=== PATIENT | male | born 1990 | race Caucasian/White ===

== ENCOUNTER 2021-07-11 14:00 | Emergency (ER) | payer MEDICAID, SELFPAY ==
[2021-07-11 14:06] VITALS: BP 108/76; PULSE 98; RESP 12; TEMP 37.6; O2SAT 96
--- NOTE | 2021-07-11 14:12 | W.ED.GENAD ---
Discharge Plan Disposition Patient Disposition: HOME Condition: Stable Discharge Details Clinical Impression: Viral syndrome Primary Care Provider: Anisa Mckeon ED Provider: Garett Sr Home Meds and New Rx's Prescriptions: Continued naproxen sodium [Aleve] 220 mg Tablet 440 mg PO BID PRNRF: 0 Discharge Instructions Instructions: Viral Syndrome (ED) Additional Instructions: Rest, plenty of fluids, [id number] Tylenol and/or Motrin as directed for discomfort. I would strongly recommend that you quit smoking and consider getting vaccinated. Your send out COVID test is pending, likely will result in the next 2-3 days and you will be notified. Until that time I recommend quarantining as you could be contagious. Please watch for new or worsening symptoms and return to the ER for any concerns otherwise contact your primary care provider on Tuesday to discuss your ER visit and need for outpatient reevaluation Medical Decision Making 31-year-old gentleman unvaccinated, current smoker, presents requesting a COVID test. Reports symptoms began over the past 24 hours. Took Aleve prior to arrival. Presents with a temperature of 37.6 but lungs are clear to auscultation and O2 sat is 96% on room air. We will obtain a send out COVID test. We discussed obtaining chest x-ray but patient declines. We discussed quarantine until his test has resulted negative, hopefully the next 2-3 days. We discussed treating symptoms [id number] medications. Standard discharge and return precautions were provided. This documentation was generated using [employer] dictation system, please disregard any oddities of phrase or misspellings. Medical Records Medical records reviewed: Yes I reviewed the patient's medical records. HPI General Mode of arrival: ambulatory. Date/Time Provider Initiated Documentation: 07/11/21 14:00. Limitations to Documentation: no limitations. Information obtained by: patient. HPI Narrative: This is a 31-year-old gentleman, current smoker, denies significant past medical history, not vaccinated for COVID, presenting to the ER reporting subjective fever, chills, dull global headache, mild dry cough, runny nose, requesting a COVID test. Patient did take Aleve prior to arrival. Reports potential COVID exposure earlier in the week, the other person's test is pending. Patient denies any vomiting, abdominal pain, diarrhea, pain or swelling in his legs, chest pain or shortness of breath Related Data Home Medications Medication Instructions Recorded Confirmed naproxen sodium [Aleve] 440 mg PO BID PRN 07/11/21 07/11/21 Allergies Allergy/AdvReac Type Severity Reaction Status Date / Time amoxicillin AdvReac Mild Skin Rash Unverified 07/11/21 14:11 General Stated Complaint: GenMedical RITO: 4 Review of Systems Constitutional Constitutional: Reports chills, Reports fever(s) and Denies headache(s) ENT Ears, Nose, Mouth, and Throat: Denies headache(s) and Denies sore throat Cardiovascular Cardiovascular: Denies chest pain and Denies dyspnea Respiratory Respiratory: Reports cough and Denies dyspnea Gastrointestinal Gastrointestinal: Denies abdominal pain Musculoskeletal Musculoskeletal: Reports myalgias Integumentary/Breasts Skin/Breast: Denies rash Neurologic Neurologic: Denies headache(s) PFSH All Active Problems (Updated 07/11/21 @ 14:27 by GENEVA Anderson) Viral syndrome (Acute) Social History Smoking/Tobacco Use Status: Current every day Tobacco Type: cigarettes Tobacco: How many years used: 16 Smoking risk assessment performed?: Yes Alcohol Intake: never Drug use: Daily Substance use type: marijuana Do you feel safe at home: Yes Do you feel safe in your relationship?: Yes Exam Const General: cooperative, healthy appearing, comfortable and no acute distress Orientation: alert, awake and oriented x3 HENMT Head: normal to inspection, normocephalic and atraumatic Ears: external ears normal, TM's normal bilaterally and EAC's normal General nose exam: nasal discharge clear bilaterally Mouth: moist mucous membranes Throat: posterior oropharynx normal Eyes General: appearance normal, both eyes and all related structures Conjunctivae: conjunctivae normal Neck Neck: normal visual inspection, full ROM, no lymphadenopathy, no meningeal signs, trachea midline, supple and nontender Resp Effort & Inspection: normal respiratory effort, able to speak in complete sentences and cough Quality of cough: dry Auscultation: clear to auscultation bilaterally Cardio Rate: regular rate Rhythm: regular rhythm Skin General skin exam: no rashes or lesions noted Neuro General: patient alert, patient awake, moves all extremities and no focal motor deficits Sensory Exam: no sensory deficits noted Psych Appearance: grossly normal Mental Status: mental status grossly normal Course Vital Signs Vital signs: Vital Signs Temperature 37.6 C H 07/11/21 14:06 Pulse 98 H 07/11/21 14:06 Respiratory Rate 12 07/11/21 14:06 Blood Pressure 108/76 07/11/21 14:06 Pulse Oximetry 96 07/11/21 14:06 Temperature 37.6 C H 07/11/21 14:06 Temperature Source Temporal Artery Scan 07/11/21 14:06 Pulse 98 H 07/11/21 14:06 Respiratory Rate 12 07/11/21 14:06 Blood Pressure 108/76 07/11/21 14:06 Blood Pressure Position Sitting 07/11/21 14:06 Pulse Oximetry 96 07/11/21 14:06 Oxygen Delivery Method Room Air 07/11/21 14:06 Oxygen Flow Rate 0 07/11/21 14:06 Pain Level 5 07/11/21 14:06
[2021-07-13 11:45] LABS: COVID-19 RT-PCR UVMMC Result Positive (Negative)
--- NOTE | 2021-07-13 15:47 | W.ED.FU ---
Follow Up Plan: I was notified by laboratory of positive COVID test. I called patient back on the phone and discussed his positive COVID test result with him. Patient reports that he feels fine and has no symptoms at this time. I discussed 5-day quarantine, and then 5 additional days of wearing mask around others to prevent transmission of COVID. Also discussed return to emergency department precautions and home care. Patient verbalized understanding of plan. All questions were answered.
== END 2021-07-11 14:38 | disposition home or self-care (01) ==
PROVIDERS: Emergency Provider Physician Assistant
DX: U07.1 COVID-19 (principal); F17.210 Nicotine dependence, cigarettes, uncomplicated; R51.9 Headache, unspecified
CPT/HCPCS: 99282; U0003

== ENCOUNTER 2021-11-18 11:14 | Emergency (ER) | payer MEDICAID, SELFPAY ==
[2021-11-18 11:21] VITALS: BP 122/71; PULSE 97; RESP 16; TEMP 36.9; O2SAT 98
--- NOTE | 2021-11-18 12:02 | W.ED.GENAD ---
Discharge Plan Disposition Patient Disposition: HOME Condition: Stable Discharge Details Clinical Impression: Influenza A Primary Care Provider: Anisa Mckeon ED Provider: Garett Sr Home Meds and New Rx's Prescriptions: No Action No Known Home Meds Discharge Instructions Instructions: Influenza (ED) Additional Instructions: Please drink plenty of fluid to stay hydrated and allow for plenty of rest. Please contact your primary care physician to arrange follow-up. Return to the ER immediately for any worsening or new concerning symptoms. Stand Alone Forms: Work Release Referrals: Anisa Mckeon MD [Primary Care Provider] - Medical Decision Making 31-year-old gentleman, smoker, unvaccinated, presents for URI-like symptoms for the past 3 days. Has not taken any [id number]-[id number] medication for his symptoms. Tested at home twice negative for COVID. Requesting work note to return to work. Clinically he appears well, nontoxic. Will perform fluvid to confirm negative COVID and flu, if unremarkable will provide return to work note. Patient is afebrile, O2 sats 98% on room air. No clear indication for chest x-ray. Flu A +. Discussed results with patient. Recommend [id number] treatment for symptoms, will provide a work note through the end of the week, plenty of hydration, etc. Standard discharge and return precautions were provided. Patient understands, is agreeable to this plan, and has no additional questions or concerns upon discharge. This documentation was generated using [employer] dictation system, please disregard any oddities of phrase or misspellings. Medical Records Medical records reviewed: Yes I reviewed the patient's medical records. Lab Data Lab results reviewed: Yes I reviewed the patient's lab results. Labs: Laboratory Tests Range/Units 11/18/21 11:29 COVID-19 Source Not Applicable SARS-CoV-2 (PCR) (Negative) Negative Influenza Type A (PCR) (Negative) Positive A Influenza Type B (PCR) (Negative) Negative RSV (PCR) (Negative) Negative HPI General Mode of arrival: ambulatory. Date/Time Provider Initiated Documentation: 11/18/21 11:20. Limitations to Documentation: no limitations. Information obtained by: patient. History of Present Illness 31 year old M presents to the emergency department with the chief complaint of uri, described as mild, with intensity rated at 3. Quality is described as aching, and is localized to the back (Body aches). Patient reports no radiation. Patient started experiencing this day(s) (3) and it has been constant. No relieving factors improve symptom(s), No exacerbating factors reported . Patient notes cough (dry) and fever/chills. Patient did receive the following treatments prior to arrival, none and other (Needs a work note to return to work) Related Data Home Medications Medication Instructions Recorded Confirmed Unknown [No Known Home Meds] 11/18/21 11/18/21 Allergies Allergy/AdvReac Type Severity Reaction Status Date / Time amoxicillin AdvReac Mild Skin Rash Unverified 11/18/21 11:24 General Stated Complaint: GenMedical RITO: 4 Review of Systems Constitutional Constitutional: Reports fever(s) ENT Ears, Nose, Mouth, and Throat: Denies sore throat Cardiovascular Cardiovascular: Denies chest pain and Denies dyspnea Respiratory Respiratory: Reports cough and Denies dyspnea Gastrointestinal Gastrointestinal: Denies abdominal pain, Denies diarrhea, Denies nausea and Denies vomiting Musculoskeletal Musculoskeletal: Reports myalgias PFSH All Active Problems (Updated 11/18/21 @ 12:31 by Artis Emery MD) Influenza A (Acute) Social History Smoking/Tobacco Use Status: Current every day Tobacco Type: cigarettes Tobacco: How many years used: 16 Smoking risk assessment performed?: Yes Alcohol Intake: never Drug use: Daily Substance use type: marijuana Do you feel safe at home: Yes Do you feel safe in your relationship?: Yes Exam Const General: cooperative, healthy appearing, comfortable and no acute distress Orientation: alert and awake [facility] Head: normal to inspection, normocephalic and atraumatic Face and sinus: normal facial exam Mouth: moist mucous membranes Throat: posterior oropharynx normal Eyes General: appearance normal, both eyes and all related structures Conjunctivae: conjunctivae normal Neck Neck: normal visual inspection, full ROM, no lymphadenopathy, no meningeal signs, trachea midline, supple and nontender Resp Effort & Inspection: normal respiratory effort and able to speak in complete sentences Auscultation: clear to auscultation bilaterally Cardio Rate: regular rate Rhythm: regular rhythm Skin General skin exam: no rashes or lesions noted Neuro General: patient alert, patient awake, moves all extremities and no focal motor deficits Cognition: normal cognition Speech: speech normal Gait: normal gait Sensory Exam: no sensory deficits noted Psych Appearance: grossly normal Mental Status: mental status grossly normal Course Vital Signs Vital signs: Vital Signs Temperature 36.9 C 11/18/21 11:21 Pulse 97 H 11/18/21 11:21 Respiratory Rate 16 11/18/21 11:21 Blood Pressure 122/71 11/18/21 11:21 Pulse Oximetry 98 11/18/21 11:21 Temperature 36.9 C 11/18/21 11:21 Pulse 97 H 11/18/21 11:21 Respiratory Rate 16 11/18/21 11:21 Respiratory Effort 11/18/21 11:25 Respiratory Depth Normal 11/18/21 11:25 Respiratory Pattern Normal 11/18/21 11:25 Blood Pressure 122/71 11/18/21 11:21 Pulse Oximetry 98 11/18/21 11:21
[2021-11-18 12:13] LABS: COVID-19 PCR Negative (Negative); Influenza B PCR Negative (Negative); RSV PCR Negative (Negative)
[2021-11-18 12:31] LABS: Influenza A PCR Positive (Negative)
[2021-11-18 12:46] VITALS: BP 122/68; PULSE 68; RESP 16; O2SAT 99
== END 2021-11-18 12:47 | disposition home or self-care (01) ==
PROVIDERS: Emergency Provider Physician Assistant
DX: J10.1 Influenza due to other identified influenza virus with other respiratory manifestations (principal); F17.210 Nicotine dependence, cigarettes, uncomplicated; Z20.822 Contact with and (suspected) exposure to COVID-19
CPT/HCPCS: 87637; 99283

== ENCOUNTER 2022-02-20 20:11 | Observation (INO) | payer MEDICAID, SELFPAY ==
[2022-02-20 20:23] VITALS: BP 118/80; PULSE 100; RESP 16; TEMP 36.1; O2SAT 99
--- NOTE | 2022-02-20 20:30 | DI.CT_ITS ---
Exam(s) CT CAROTID NECK CTA EXAM: CT CAROTID NECK CTA CLINICAL HISTORY: attempted hanging. TECHNIQUE: Imaging Protocol: Axial CT angiography was performed with multi-slice acquisition and mu lti-planar and/or 3D reconstructions. CONTRAST MATERIAL: Intravenous: Omnipaque 350 Contrast volume:structured data in ml COMPARISON: CT CT CERVICAL SPINE WO from 02/20/2022 FINDINGS: CTA NECK W: AORTIC ARCH ANATOMY: Conventional Anterior circulation: Both common carotid arteries are nicely patent. No narrowing. No dissection. No surrounding hemato mas. The carotid bifurcations and proximal internal carotid arteries are patent bilaterally. No si gnificant stenosis nor dissection. The internal carotid arteries are patent in the skull base-caroti d canals. Posterior circulation: Both vertebral arteries originated conventional fashion off of the subclavian arteries. No significa nt stenosis in the subclavian arteries proximal to the vertebral artery takeoff points. The left kateryna tebral artery is dominant. Both vertebral arteries ascend with normal luminal diameters in the jessica en transverse area with no evidence of intraluminal thrombus nor dissection. Both vertebral arteries contribute to the formation of the basilar artery at the skull base although the left vertebral adalgisa ry is dominant contributor. Most of the vertebral arteries included in the field of view and appears patent. Also included in the upper field of view are the intracavernous internal carotid arteries which are p atent, the supraclinoid internal carotid arteries which are patent and both middle cerebral arteries which appear patent. Both A1 segments are patent as are the anterior cerebral arteries. No evidence of aneurysm at the level of the anterior communicating artery. No aneurysm tip of the basilar arter y. IMPRESSION: 1. Patent vessels in the neck with no evidence of carotid stenosis nor dissection. No evidence of v ertebral artery thrombosis nor dissection. 2. Vessels are also patent in the skull base as described above. 3. No fractures. RADIATION DOSE DELIVERED: Total DLP DATA REPOSITORY: All CT scans at this facility are submitted to the National Radiology Data Registry (NRDR) Dose Index Registry (DIR) with the [employer] (ACR). RADIATION OPTIMIZATION: All CT scans at this facility use at least one of these dose optimization te chniques: automated exposure control; mA and/or kV adjustment per patient size (includes targeted exa ms where dose is matched to clinical indication); or iterative reconstruction.
--- NOTE | 2022-02-20 20:35 | DI.CT_ITS ---
Exam(s) CT CERVICAL SPINE WO EXAM: CT CERVICAL SPINE WO CLINICAL HISTORY: c-spine due to hanging attempt. TECHNIQUE: Imaging Protocol: Axial computed tomography images with coronal and sagittal reformatted images were created and reviewed COMPARISON: No exams were available for comparison FINDINGS: CERVICAL SPINE: There is no evidence of fracture nor listhesis. No significant prevertebral soft tissue swelling. There is a small hyperdensity anterior to the C4 vertebra which most probably represents some calcifi cation and less likely fracture fragment. There is reversal of the normal curvature of the cervical spine which is probably related to muscle spasm. There is no significant facet joint malalignment. No significant osseous lesions evident. IMPRESSION: No evidence of cervical spine fracture, malalignment, nor acute compromise of the cervical spinal can al. Reversal normal curvature which most probably related to muscle spasm. RADIATION DOSE DELIVERED: 298.9 mGy.cm Total DLP DATA REPOSITORY: All CT scans at this facility are submitted to the National Radiology Data Registry (NRDR) Dose Index Registry (DIR) with the [employer] (ACR). RADIATION OPTIMIZATION: All CT scans at this facility use at least one of these dose optimization te chniques: automated exposure control; mA and/or kV adjustment per patient size (includes targeted exa ms where dose is matched to clinical indication); or iterative reconstruction.
--- NOTE | 2022-02-20 20:40 | ED.GENADUL_ITS ---
Discharge Plan Disposition Patient Disposition: [facility] INPATIENT Condition: Stable Discharge Details Clinical Impression: Depression with suicidal ideation, Suicide attempt by hanging Admit Date/Time: 02/20/22 22:35 Admit Provider: Jonny Li Attending Provider: Jonny Li Primary Care Provider: Anisa Mckeon ED Provider: Gerry Hawthorne Discharge Data Discharge Date/Time-TO BE ENTERED AT DEPARTURE: 02/20/22 22:55 Medical Decision Making Patient presenting to the emergency department via [facility] for chief complaint of suicidal ideations with attempt of hanging. Patient was found by fianc? after he attempted to hang himself. Patient states long ongoing depression with hopelessness. Patient denies any ingestion alcohol or drugs. Patient does have previous history of old overdose about 14 years ago. Physical exam shows tenderness and erythema to the anterior neck but trachea is midline, voice is normal, respirations and remainder of exam is unremarkable. Patient does elicit suicidal ideations but denies any homicidal ideations. Patient had previously been on psychiatric medications after former attempt of suicide but has been off medication for years now. We will plan on checking labs and performing imaging of neck due to attempted hanging. Patient is otherwise stable with no emergent interventions needed. Reviewed patient's labs and CBC is nondiagnostic and otherwise unremarkable, CMP does show slightly increased anion gap at 12.2 but again unremarkable. Urinalysis is also unremarkable, patient did have slight amount of salicylate of 3.3, positive drug screen for cocaine otherwise negative, ethyl alcohol of 39.9. Reviewed CT imaging which shows no acute worrisome findings. At this time patient is agreeable to voluntary admission but seems significantly agitated about having to stay. I did inform patient that he would not be safe to stay at this time and discussed involuntary admission versus voluntary and after this discussion he was agreeable. Patient ordered Nicotrol. Imaging Data Radiologic Study: Imaging: CT Scan Radiologist's impression: CT C-Spine FINDINGS: Bones/joints: A small focus of hyperdensity anterior to the C4 vertebral body may represent a small calcification and less likely fracture. There is reversal of the cervical lordosis, which could be secondary to patient positioning or neck spasm. Lungs: Lung apices are normal. Soft tissues: Unremarkable. IMPRESSION: No acute fracture. CTA- Neck FINDINGS: Right common carotid artery: No stenosis. No dissection or occlusion. Right internal carotid artery: No stenosis of the extracranial segment. No dissection or occlusion. Right external carotid artery: No occlusion or stenosis of the origin. Left common carotid artery: No stenosis. No dissection or occlusion. Left internal carotid artery: No stenosis of the extracranial segment. No dissection or occlusion. Left external carotid artery: No occlusion or stenosis of the origin. Right vertebral artery: No stenosis. No dissection or occlusion. Left vertebral artery: No stenosis. No dissection or occlusion. Paranasal sinuses: There is mucosal thickening in the bilateral maxillary sinuses. Soft tissues: Normal. No significant soft tissue swelling. Bones/joints: No acute fracture. IMPRESSION: No evidence of arterial injury. Lab Data Lab results reviewed: Yes I reviewed the patient's lab results. HPI General Mode of arrival: ambulatory . Date/Time Provider Initiated Documentation: 02/20/22 20:18 . Limitations to Documentation: no limitations . Information obtained by: patient, police and RN notes reviewed . History of Present Illness 31 year old M presents to the emergency department with the chief complaint of Suicidal ideations, attempted hanging, described as mild, with intensity rated at 1. Quality is described as aching, and is localized to the neck. Patient reports no radiation. Patient started experiencing this hour(s) (1) and it has been constant. No relieving factors improve symptom(s), No exacerbating factors reported . Patient notes no other symptoms.. Patient did receive the following treatments prior to arrival, none Related Data Home Medications Medication Instructions Recorded Confirmed Unknown [No Known Home Meds] 11/18/21 02/20/22 Allergies Allergy/AdvReac Type Severity Reaction Status Date / Time amoxicillin AdvReac Mild Skin Rash Unverified 02/20/22 20:25 General Stated Complaint: PsychEval RITO: 2 Review of Systems Constitutional Constitutional: Denies body ache(s), Denies chills, Denies fever(s), Denies headache(s), Denies weight gain and Denies weight loss Eyes Eyes: Denies change in vision ENT Ears, Nose, Mouth, and Throat: Denies dysphagia, Denies headache(s), Reports neck pain, Denies odynophagia, Denies tinnitus, Reports sore throat and Denies throat swelling Cardiovascular Cardiovascular: Denies chest pain, Denies syncope and Denies dyspnea Respiratory Respiratory: Denies cough and Denies dyspnea Gastrointestinal Gastrointestinal: Denies abdominal pain, Denies dysphagia, Denies diarrhea, Denies nausea, Denies odynophagia and Denies vomiting Genitourinary Genitourinary: Denies difficulty urinating and Denies dysuria Musculoskeletal Musculoskeletal: Reports neck pain Integumentary/Breasts Skin/Breast: Denies wounds Neurologic Neurologic: Denies syncope and Denies headache(s) Psychiatric Psychiatric: Reports as per HPI, Reports depression, Reports hopelessness, Reports anhedonia, Denies homicidal ideation and Reports suicidal ideation Endocrine Endocrine: Denies cold intolerance and Denies heat intolerance Hematologic/Lymphatic Hematologic/Lymphatic: Denies easy bleeding and Denies easy bruising Allergic/Immunologic Allergic/Immunologic: Denies throat swelling PFSH All Active Problems (Updated 02/21/22 @ 13:35 by Jonny Li) Substance abuse (Chronic) Depression (Chronic) Suicidal ideation (Acute) Social History Smoking/Tobacco Use Status: Current every day Tobacco Type: cigarettes Tobacco: How many years used: 16 Smoking risk assessment performed?: Yes Alcohol Intake: never Drug use: Daily Substance use type: marijuana Do you feel safe at home: Yes Do you feel safe in your relationship?: Yes Exam Const General: cooperative Orientation: alert, awake and oriented x3 Limitations: mental status not altered HENMT Head: normal to inspection, normocephalic and atraumatic Ears: hearing grossly normal bilaterally and TM's normal bilaterally General nose exam: external nose normal Face and sinus: normal facial exam Mouth: lip normal, tongue normal, oropharynx normal and moist mucous membranes Throat: posterior oropharynx normal Eyes General: appearance normal, both eyes and all related structures Pupils: PERRL EOM: EOM intact bilaterally Neck Neck: supple, no anterior neck swelling, no lymphadenopathy noted, tender, no tracheal deviation and other (Circumferential erythema noted to anterior neck) Resp Effort & Inspection: normal respiratory effort, able to speak in complete sentences and no respiratory distress Auscultation: clear to auscultation bilaterally Cardio Rate: regular rate and not tachycardic Rhythm: regular rhythm Heart Sounds: S1 normal, S2 normal, no click, no gallops, no murmurs and no rubs Neuro General: patient alert, patient awake, patient oriented x3, gait normal, moves all extremities and no focal motor deficits Cognition: normal cognition Speech: speech normal Psych Speech and Movement: speech and movement normal and speech clear Affect: sad Attitude: cooperative Thought Process: normal Thought Content: normal and suicidality Course Vital Signs Vital signs: Vital Signs Temperature 36.1 C L 02/20/22 20:23 Pulse 100 H 02/20/22 20:23 Respiratory Rate 16 02/20/22 20:23 Blood Pressure 118/80 02/20/22 20:23 Pulse Oximetry 99 02/20/22 20:23 Temperature 36.1 C L 02/20/22 20:23 Temperature Source Skin 02/20/22 20:23 Pulse 100 H 02/20/22 20:23 Respiratory Rate 16 02/20/22 20:23 Blood Pressure 118/80 02/20/22 20:23 Pulse Oximetry 99 02/20/22 20:23 Pain Level 1 02/20/22 20:23
[2022-02-20 20:50] LABS: Abs Immature Grans 0.03 10^3/uL (0.0-0.06); Absolute Basophil Count 0.13 10^3/uL (0.0-0.2); Absolute Eosinophil Count 0.11 10^3/uL (0.0-0.7); Absolute Lymphocyte Count 2.29 10^3/uL (1.2-3.4); Absolute Monocyte Count 0.72 10^3/uL (0.1-0.8); Absolute Neutrophil Count 7.23 10^3/uL (1.2-6.7); Basophils % 1.2; HCT 42.8 % (40.0-50.0); HGB 14.5 g/dL (13.5-17.5); Immature Grans % 0.3; Lymphocytes % 21.8; MCHC 33.9 % (32.0-36.0); MCV 92 fL (80-95); MPV 9.3 fL (8.0-11.0); Monocytes % 6.9; Neutrophils % 68.8; Platelet Count 298 10^3/uL (130-400); RBC 4.68 10^6/uL (4.36-5.78); RDW 12.8 % (11.8-14.1); RDW-SD 42.4 fL; WBC 10.51 10^3/uL (4.4-10.8)
[2022-02-20] MEDS: Omnipaque 350 MG/ML 100 ML BTL IJ (21:06)
[2022-02-20 21:07] LABS: ALT 27 U/L (16-63); AST 13 U/L (15-37); Albumin 4.7 g/dL (3.4-5.0); Alkaline Phosphatase 55 U/L (46-116); Anion Gap 12.2 mmol/L (3-11); BUN 7 mg/dL (7-18); Bilirubin, Total 0.6 mg/dL (0.2-1.0); CO2 24.8 mmol/L (21.0-32.0); Calcium 9.2 mg/dL (8.5-10.1); Chloride 101 mmol/L (98-107); ETHANOL BLOOD 39.9 mg/dL (<10); Glucose 96 mg/dL (74-106); Potassium 3.7 mmol/L (3.5-5.1); Sodium 138 mmol/L (136-145); Total Protein 8.1 g/dL (6.4-8.2)
[2022-02-20] MEDS: Normal Saline Flush 10 ML SYR IVP (21:07)
[2022-02-20 21:11] LABS: Salicylate 3.3 mg/dL (<2.8)
[2022-02-20 21:13] LABS: Acetaminophen < 2 ug/mL (10-30)
[2022-02-20 21:30] LABS: *AMPHETAMINES SCREEN URINE Negative (Negative); *BARBITURATES SCREEN URINE Negative (Negative); *BENZODIAZEPINES SCREEN URINE Negative (Negative); Cannabinoids THC Negative (Negative); Cocaine Screen,Urine Positive (Negative); METHADONE URINE SCREEN Negative (Negative); OPIATES URINE SCREEN Negative (Negative)
[2022-02-20 21:31] LABS: Tricyclic Antidepressants Negative (Negative)
[2022-02-20 21:32] LABS: Bilirubin Negative (Negative); Blood Negative (Negative); Clarity Clear (Clear); Glucose Negative (Negative); Ketones Negative (Negative); Leukocyte Esterase Negative (Negative); Nitrite Negative (Negative); Urobilinogen 0.2 EU/dL (Up TO 0.2)
--- NOTE | 2022-02-20 21:49 | DI.VRAD_ITS ---
PROCEDURE INFORMATION: Exam: CTA Neck With Contrast Exam date and time: 02/20/2022 8:56 PM Age: 31 years old Clinical indication: Injury or trauma; Other: Attempted hanging; Asphyxiation TECHNIQUE: Imaging protocol: Computed tomographic angiography of the neck with contrast. 3D rendering (Not supervised by radiologist): MIP and/or 3D reconstructed images were created by the technologist. COMPARISON: No relevant prior studies available. FINDINGS: Right common carotid artery: No stenosis. No dissection or occlusion. Right internal carotid artery: No stenosis of the extracranial segment. No dissection or occlusion. Right external carotid artery: No occlusion or stenosis of the origin. Left common carotid artery: No stenosis. No dissection or occlusion. Left internal carotid artery: No stenosis of the extracranial segment. No dissection or occlusion. Left external carotid artery: No occlusion or stenosis of the origin. Right vertebral artery: No stenosis. No dissection or occlusion. Left vertebral artery: No stenosis. No dissection or occlusion. Paranasal sinuses: There is mucosal thickening in the bilateral maxillary sinuses. Soft tissues: Normal. No significant soft tissue swelling. Bones/joints: No acute fracture. IMPRESSION: No evidence of arterial injury. REFERENCES: NASCET CRITERIA. The degree of stenosis in the cervical segment of the internal carotid artery is based on NASCET criteria. Normal is no stenosis. Mild is less than 50% stenosis. Moderate is 50-69% stenosis. Severe is 70% to 99% stenosis. Total occlusion is no detectable patent lumen. Dictated and Authenticated by: Jessica Bartlett MD. Ordering:EMIL Garrett MD
--- NOTE | 2022-02-20 22:02 | DI.VRAD_ITS ---
PROCEDURE INFORMATION: Exam: CT Cervical Spine Without Contrast Exam date and time: 02/20/2022 8:56 PM Age: 31 years old Clinical indication: Injury or trauma; Attempted hanging; Asphyxiation TECHNIQUE: Imaging protocol: Computed tomography of the cervical spine without contrast. COMPARISON: No relevant prior studies available. FINDINGS: Bones/joints: A small focus of hyperdensity anterior to the C4 vertebral body may represent a small calcification and less likely fracture. There is reversal of the cervical lordosis, which could be secondary to patient positioning or neck spasm. Lungs: Lung apices are normal. Soft tissues: Unremarkable. IMPRESSION: No acute fracture. Dictated and Authenticated by: Jessica Bartlett MD. Ordering:EMIL Garrett MD
--- NOTE | 2022-02-20 22:35 | HPE_ITS ---
Date of service: 02/20/22 Time of Service: 22:35 Assessment and Plan Assessment and plan (1) Suicidal ideation: Start date: 02/20/22 Status: Acute Assessment and plan: This is a 31-year-old gentleman who failed suicide attempt by hanging. He is medically cleared with no injury and is voluntarily awaiting placement to inpatient psychiatric care. He is on no psychiatric treatment at this time. He appears stable. (2) Depression: Status: Chronic Assessment and plan: On no treatment at this time but is being reevaluated with inpatient evaluation and treatment plan. (3) Substance abuse: Status: Chronic Assessment and plan: Patient has history of using cocaine with positive UA though he denies recent use. Monitor for self treatment long-term as an outpatient. Counseling may be helpful. History of Present Illness History of Present Illness Chief Complaint: Suicide attempt with loose noose and failed being found by [place]? Narrative: This is a 31-year-old male patient who attempted suicide but was unsuccessful with Finding. He is hopeless but not living with his zoe and has a daughter who does not live with him. He does occasionally use cocaine and this was in his urine drug screen though he denies any recent use of alcohol or drugs. He has had previous suicide attempts and is not obviously present presently. He does have suicidal ideation and he is medically cleared to be brought in voluntarily pending placement for inpatient. He is stable except for having nicotine withdrawal and use of metoprolol to temporize. He is short during conversation not wanting to discuss details or further history. He states his neck is slightly tender but had minimal trauma. Imaging was negative. Labs were within normal except for urine drug screen. ED evaluation by provider as follows: Patient presenting to the emergency department via [facility] for chief complaint of suicidal ideations with attempt of hanging.? Patient was found by fianc? after he attempted to hang himself.? Patient states long ongoing depression with hopelessness.? Patient denies any ingestion alcohol or drugs.? Patient does have previous history of old overdose about 14 years ago.? Physical exam shows tenderness and erythema to the anterior neck but trachea is midline, voice is normal, respirations and remainder of exam is unremarkable.? Patient does elicit suicidal ideations but denies any homicidal ideations.? Patient had previously been on psychiatric medications after former attempt of suicide but has been off medication for years now.? We will plan on checking labs and performing imaging of neck due to attempted hanging.? Patient is otherwise stable with no emergent interventions needed. Reviewed patient's labs and CBC is nondiagnostic and otherwise unremarkable, CMP does show slightly increased anion gap at 12.2 but again unremarkable.? Urinalysis is also unremarkable, patient did have slight amount of salicylate of 3.3, positive drug screen for cocaine otherwise negative, ethyl alcohol of 39.9 .? Reviewed CT imaging which shows no acute worrisome findings.? At this time patient is agreeable to voluntary admission but seems significantly agitated about having to stay.? I did inform patient that he would not be safe to stay at this time and discussed involuntary admission versus voluntary and after this discussion he was agreeable.? Patient ordered Nicotrol. Review of Systems Narrative: 13 point review of systems otherwise unrevealing or stable. His weight has been stable but he has had increasing hopelessness recently. PFSH All Active Problems (Updated 02/21/22 @ 13:35 by Jonny Li) Substance abuse (Chronic) Depression (Chronic) Suicidal ideation (Acute) Social History Smoking/Tobacco Use Status: Current every day Tobacco Type: cigarettes Tobacco: How many years used: 16 Smoking risk assessment performed?: Yes Alcohol Intake: never Drug use: Daily Substance use type: marijuana Do you feel safe at home: Yes Do you feel safe in your relationship?: Yes Meds Allergies and Home Medications Allergies Allergy/AdvReac Type Severity Reaction Status Date / Time amoxicillin AdvReac Mild Skin Rash Unverified 02/20/22 20:25 Home Medications Medication Instructions Recorded Confirmed Type Unknown [No Known Home Meds] 11/18/21 02/20/22 History Exam Narrative Exam Narrative: General: Patient appears appropriate for age, flattened affect with poor eye contact, turns away from the interviewer with short conversations. He is alert and oriented x3. HEENT: Normocephalic, eyes with pupils equal and reactive to light symmetri james, extraocular movement intact and sclera anicteric. Oropharynx with moist mucosa. Neck: Erythema over the base of the neck without edema or induration, no lacerations, fair range of motion and supple. No JVD. Back: Normal posture without CVA tenderness. Lungs: Fair aeration with bronchovesicular breath sounds diffusely, no expiratory wheezes no focalizing rales or rhonchi. Heart: Regular rate and rhythm with no murmurs or gallops appreciated. Abdomen: Scaphoid contour, soft and nontender to palpation. No palpable hepatosplenomegaly. Bowel sounds positive all quadrants. Genitalia/rectal: Exam deferred. Extremities: Without clubbing, cyanosis or pitting edema. Peripheral pulses intact. Skin: Tattoos with normal color, warm and dry. Neuro: Cranial nerves II through XII gross intact, no focalizing motor deficits or tremors. Psych: Flattened affect with depressed mood patient withdrawn. No abnormal thought processes other than suicidal ideation. Remote and recent memory appear to be grossly intact. Patient is easily agitated. Results Imaging Imaging Studies: Exam: CTA Neck With Contrast Exam date and time: 02/20/2022 8:56 PM Age: 31 years old Clinical indication: Injury or trauma; Other: Attempted hanging; Asphyxiation TECHNIQUE: Imaging protocol: Computed tomographic angiography of the neck with contrast. 3D rendering (Not supervised by radiologist): MIP and/or 3D reconstructed images were created by the technologist. COMPARISON: No relevant prior studies available. FINDINGS: Right common carotid artery: No stenosis. No dissection or occlusion. Right internal carotid artery: No stenosis of the extracranial segment. No dissection or occlusion. Right external carotid artery: No occlusion or stenosis of the origin.? Left common carotid artery: No stenosis. No dissection or occlusion. Left internal carotid artery: No stenosis of the extracranial segment. No dissection or occlusion. Left external carotid artery: No occlusion or stenosis of the origin.? Right vertebral artery: No stenosis. No dissection or occlusion. Left vertebral artery: No stenosis. No dissection or occlusion. Paranasal sinuses: There is mucosal thickening in the bilateral maxillary sinuses. Soft tissues: Normal. No significant soft tissue swelling. Bones/joints: No acute fracture. IMPRESSION: No evidence of arterial injury. Exam: CT Cervical Spine Without Contrast Exam date and time: 02/20/2022 8:56 PM Age: 31 years old Clinical indication: Injury or trauma; Attempted hanging; Asphyxiation TECHNIQUE: Imaging protocol: Computed tomography of the cervical spine without contrast. COMPARISON: No relevant prior studies available. FINDINGS: Bones/joints: A small focus of hyperdensity anterior to the C4 vertebral body may represent a small calcification and less likely fracture. There is reversal of the cervical lordosis, which could be secondary to patient positioning or neck spasm. Lungs: Lung apices are normal. Soft tissues: Unremarkable. IMPRESSION: No acute fracture. Labs Result diagrams: 02/20/22 20:45 02/20/22 20:45 Labs: Laboratory Results - last 24 hr 02/20/22 02/20/22 02/20/22 20:45 20:45 20:45 WBC 10.51 RBC 4.68 Hgb 14.5 Hct 42.8 MCV 92 MCH 31.0 MCHC 33.9 RDW 12.8 Plt Count 298 MPV 9.3 Immature Gran % 0.3 Neutrophils % 68.8 Lymphocytes % 21.8 Monocytes % 6.9 Eosinophils % 1.0 Basophils % 1.2 Nucleated RBC % 0.0 Absolute Neutrophils 7.23 H Absolute Lymphocytes 2.29 Absolute Monocytes 0.72 Absolute Eosinophils 0.11 Absolute Basophils 0.13 Sodium 138 Potassium 3.7 Chloride 101 Carbon Dioxide 24.8 Anion Gap 12.2 H BUN 7 Creatinine 1.0 Estimated GFR/1.73 m2 >= 60.00 Glucose 96 Calcium 9.2 Total Bilirubin 0.6 AST 13 L ALT 27 Alkaline Phosphatase 55 Total Protein 8.1 Albumin 4.7 Urine Color Urine Clarity Urine pH Ur Specific [place] Urine Protein Urine Ketones Urine Blood Urine Nitrite Urine Bilirubin Urine Urobilinogen Ur Leukocyte Esterase Urine Glucose Salicylates 3.3 Urine Opiates Screen Urine Methadone Screen Acetaminophen < 2 Ur Barbiturates Screen Ur Tricyclics Screen Ur Amphetamines Screen U Benzodiazepines Scrn Urine Cocaine Screen Ur THC Screen Ethyl Alcohol 39.9 H 02/20/22 02/20/22 21:00 21:00 WBC RBC Hgb Hct MCV MCH MCHC RDW Plt Count MPV Immature Gran % Neutrophils % Lymphocytes % Monocytes % Eosinophils % Basophils % Nucleated RBC % Absolute Neutrophils Absolute Lymphocytes Absolute Monocytes Absolute Eosinophils Absolute Basophils Sodium Potassium Chloride Carbon Dioxide Anion Gap BUN Creatinine Estimated GFR/1.73 m2 Glucose Calcium Total Bilirubin AST ALT Alkaline Phosphatase Total Protein Albumin Urine Color Yellow Urine Clarity Clear Urine pH 6.0 Ur Specific [place] 1.010 Urine Protein Negative Urine Ketones Negative Urine Blood Negative Urine Nitrite Negative Urine Bilirubin Negative Urine Urobilinogen 0.2 Ur Leukocyte Esterase Negative Urine Glucose Negative Salicylates Urine Opiates Screen Negative Urine Methadone Screen Negative Acetaminophen Ur Barbiturates Screen Negative Ur Tricyclics Screen Negative Ur Amphetamines Screen Negative U Benzodiazepines Scrn Negative Urine Cocaine Screen Positive A Ur THC Screen Negative Ethyl Alcohol Last Vital Signs Temp 36.1 C L 02/20/22 20:23 Pulse 100 H 02/20/22 20:23 Resp 16 02/20/22 20:23 BP 118/80 02/20/22 20:23 Pulse Ox 99 02/20/22 20:23
--- NOTE | 2022-02-20 22:37 | PDOC.MHCN_ITS ---
Date of service: 02/20/22 Time of Service: 21:00 PHQ-9 Over the last 2 weeks, how often have you been bothered by any of the following problems? 1. Little interest or pleasure in doing things: several days 2. Feeling down, depressed, or hopeless: nearly every day 3. Trouble falling or staying asleep, or sleeping too much: several days 4. Feeling tired or having little energy: not at all 5. Poor appetite or overeating: not at all 6. Feeling bad about yourself - or that you are a failure or have let yourself and your family down: nearly every day 7. Trouble concentrating on things, such as reading the newspaper or watching television: not at all 8. Moving or speaking so slowly that other people could have noticed? - Or the opposite - being so fidgety or restless that you have been moving around a lot more than usual: not at all 9. Thoughts that you would be better off or of hurting yourself in some way: several days Total score: 9 Source: Developed by Drs. Jermain Carrera, Karlene Boykin, Liam Terry and colleagues, with an educational jerica from [employer]. Suicide Severity Rate CSSRS Have you wished you were or wished you could go to sleep and not wake up?: Yes Have you actually had any thoughts of killing yourself?: Yes CSSRS2 Have you been thinking about how you might do this?: Yes Have you had these thoughts and had some intention of acting on them?: Yes Have you started to work out or worked out the details of how to kill yourself? Do you intend to carry out this plan?: Yes CSSRS3 Have you ever done anything, started to do anything or prepared to do anything to end your life?: Yes CSSRS4 Was this within the past three months?: Yes Screening Score Total Score: 8 Screening: Positive Mental Health Emergency Note Release [facility] release signed:: Yes Reason for Visit Client was brought in by [facility] after he attempted to hang himself. In the last 2 weeks has the pt presented for ES prior to today?: No Client Information Client is: Adult Outpatient Well Housed: Yes Non Suicidal Self Injury Current: No History: No Safety Risk/Harm to Self or Others Current Ideation to Harm Self or Others: Yes to self. (Client attempted to hang himself with an extension cord. Client had the cord wrapped around his neck and was hanging from a beam.) Intent: yes, has intent. Plan: yes,has a plan. History of suicide attempt: yes,history of suicide attempt reported. Details of previous suicide attempt: Before today, client reports he attempted to overdose on cocaine when he was [age] years old. Risk: Does risk to harm exist?: yes. Access to means: No. Risk: High Risk (Client would be at high risk if he were to leave the ED, in addition client has access to means at home but not in the ED.) Duty to warn indicated: No Asssessment/Mental Status Appearance: Unremarkable Attitude: Cooperative and Guarded Behavior: Poor impulse control, Agitated and Gait disturbances Speech: Normal Affect: Cogruent with mood Mood: Elevated, Stressed, Depressed, Anxious and Irritable Thought process: Racing, Goal directed and Circumstational Hallucinations: No Delusions: No Attention: Unremarkable Perception: Not impaired Orientation: Fully orientated Memory: Intact Insight: Poor Judgement: Poor Neurovegetative Symptoms Sleep: Decrease (Client has not slept well in two nights.) Appetitie: Decrease (Client has not eaten since yesterday.) Interests: No change Energy: No change Libido: Not applicable Substance Use: Do you use nicotine?: Yes Have you used substances in the last 7 days?: yes, Client smokes marijuana, reporting less than an eighth of an ounce a week. Additional Issues: Assaultive/Threatening Behavior: No Medical Concerns: Yes Client engaged in active self harm w/weapon: Yes Threatening to run away: No Child reported abuse/neglect: No Voluntarily presenting for services: Yes Domestic violence is a concern: No Extreme Psychosis or extreme behavior is present: No Impression This clinician first started talking to CAROLYNN while he was in the [employer]'s vehicle. CAROLYNN reports he feels like a failure and he can never do anything right. Client reports he is struggling to maintain a job and help provide for himself and his family. Client feels embarrassed because of tonight's events. Client presents as cooperative but guarded and goal directed. Client reports he attempted to hang himself because he had enough. Client did report his intention was to by suicide. Client reports having anxiety and depression. CAROLYNN states he has a therapist from [facility]. Client states he wants to go home, this account underwriter and FANCY NEEDLEWORK[employer] Marine had a conversation with this cleint on why this is not the most appropriate option. CAROLYNN agreed and is seeking voluntary treatment. Plan/Disposition Recommended Disposition: Hospitalization (Referrals will be sent first thing in the morning.) No and Psych Screening. Plan: Client will remain at [facility] until voluntary treatment is found. If this client attempts to leave please call [facility] so we can discuss with him. If client were to leave AMA we need to be notified LINDSEY. Person reported agreement to plan: Yes Reports/communication Outcome discussed with: ED/Personnel
[2022-02-20] MEDS: hydrOXYzine HCL 25 MG TAB PO (22:56)
[2022-02-20 23:31] LABS: Source Nasal/Nares
[2022-02-21 00:02] LABS: COVID-19 PCR Negative (Negative)
[2022-02-21 00:28] VITALS: BP 105/62; PULSE 85; RESP 18; TEMP 36.3; O2SAT 96
[2022-02-21 08:21] VITALS: BP 96/60; PULSE 72; RESP 14; TEMP 36.4; O2SAT 97
[2022-02-21] MEDS: LORazepam 1 MG TAB PO ×2 (13:36→16:49)
--- NOTE | 2022-02-21 13:51 | PDOC.CMSAFE ---
- If Service Date Differs Date of service: 02/21/22 Time of Service: 13:51 Care Management Safety Plan Status: Voluntary - Reason for Wait Reason for Wait: Inpatient Admission VOLUNTARY FOR INPATIENT PSYCHIATRIC STABILIZATION. Patient is appropriate in all interactions since arriving at [facility]; Pt has demonstrated appropriate coping and communication skills, has articulated his or her needs and concerns and is fully engaged during staff interactions. Safety plan has been established with patient, and care team, to adhere to patient goals, identify restrictions based on behavioral status, address nutrition, and determine allowed personal belongings, tools for hygiene and personal care. Determine level of activity including ambulation, level of supervision, visitors, and determine privileges based on behaviors and level of engagement by pt. SAFETY PLAN: 1. Will remain on suicide precautions. In Paper Clothes 2. Will remain in room under direct supervision of one-on-one staff at all times provided by [employer]; NADIA, [employer] ski production supervisor. 3. May have paper cups, plates, finger foods as well as a cardboard spoon with which to eat meals. 4. Follow [facility] Management of the Admitted Behavioral Health Patient policy. 5. Comfort bath system only, shower permitted with escort at RN discretion. 6. No personal belongings-soft items permitted at RN discretion. 7. Visitors-none at this time. 8. Activities: soft cart items approved per RN discretion. 9. Bathroom privileges with escort in the ED, available in room without limitation on M/S. 10. Phone: incoming/outgoing calls via cordless phone at RN discretion. 11. Due to VOLUNTARY status, if patient wishes to leave [facility], staff will contact [facility] Crisis Screener ([phone]) and [employer] Water Purifier ([phone]) as soon as possible. In the event of elopement, notify [facility] Police ([phone]). Patient is currently voluntarily at [facility] and seeking inpatient admission when a bed becomes available. [facility] Frontline Director [employer] will continue seeking placement. Please contact the [employer] Water Purifier ([phone]) and [facility] Director [employer] ([phone]) for any needed changes in the Safety Plan. Safety plan has been provided to interdepartmental care team.
--- NOTE | 2022-02-21 13:52 | CMPROGNOTE_ITS ---
- If Service Date Differs Date of service: 02/21/22 Time of Service: 13:52 Care Management Progress Note S/O: LIBIA received a call from Sejal, Serg's mother, who provided information about Serg, stating that she feels he has hit bottom. She stated that he is in a good relationship with his girlfriend, Em. He has one child from a previous relationship that he pays child support for, and he is currently out of work, and on probation. She stated that he has a court appearance on March 04, 2022 regarding child support, and she is worried that he will not be able to call in if he is in treatment. Per [facility], he has had four DUI's, which is why he is on probation, and has a counselor through [facility], Melany Mata. Serg was lying in bed when CM met with him. He reported that he is not doing well today, as he does not want to be in the hospital. He stated that he had a bad day yesterday, which led to his attempt, but that he is not currently suicidal or homicidal. CM explained the process for him to better understand that he is currently voluntary, awaiting inpatient psychiatric treatment. He stated that he does not want to go to treatment at this time. CM explained that he is not being held involuntarily, therefore he is able to leave if he chooses, but it would be AMA. If he chooses to leave, CM will notify [facility]. If [facility] feels that he is a danger to himself or others, they may seek a warrant for EE. Serg expressed frustration regarding this process. LIBIA stated that per [place], he may use the cordless phone for incoming/outgoing calls. He was appreciative and asked to call his family, and stated that he would decide if he wants to leave or not after the call. Later, LIBIA was called to discuss the process with Serg and his mother, Sejal. LIBIA reviewed the process and talked with his mother, Sejal, who expressed concern if he is to leave the hospital. Serg appeared agitated, and requested support for his anxiety. LIBIA informed MARGARITA Downey, who visited with him and ordered medication for his anxiety, as well as additional nicotine replacement. Serg agreed to remain voluntary for inpatient psychiatric treatment. Per [facility], [facility] and [facility] are both reviewing his referral. [facility] has stated that they may have a bed for him tomorrow. [facility] requested additional information, and may be able to offer him a bed today. CM will continue to follow. A: Serg is a 31 year old male admitted to [facility] on 02/20/22 for a suicide attempt. P: Serg is voluntarily seeking inpatient psychiatric treatment. [facility] has sent referrals to all facilities. [facility] [place] and [facility] are both considering him for admission. Once a bed offer is made, CM vs RN mailroom supervisor (after hours) will coordinate transport via [employer] vs EMS, depending on availability. He will follow up with his PCP and discharge plan of care. CM will continue to support discharge planning considerations.
[2022-02-21] MEDS: Nicotine 4 MG GUM CH (14:08)
--- NOTE | 2022-02-21 15:25 | DSE_ITS ---
Date of service: 02/21/22 Time of Service: 15:25 DS: Diagnosis Discharge Diagnosis (1) Suicidal ideation: Status: Acute (2) Depression: Status: Chronic (3) Substance abuse: Status: Chronic Discharge Plan Disposition Patient Disposition: [facility] Condition: Stable Discharge Details Reason For Visit: Suicide Attempt Admit Date/Time: 02/20/22 22:35 Admit Provider: Jonny Li Attending Provider: Jonny Li Primary Care Provider: Anisa Mckeon [facility] Hospital Course: This is a 31-year-old male patient that presented to the [facility] emergency department with [facility] on 02/20/22 in the evening with the chief complaint of Suicidal ideation and attempted hanging. The patient was found by his fianc? after he tried to hang himself. The patient endorsed long ongoing depression with hopelessness. The patient denied any ingestion of alcohol or drugs. The patient did have a previous history of overdose about 14 years ago. The physical exam showed tenderness and erythema to the anterior neck; the trachea was midline, his voice was normal, respirations regular and bilaterally clear, and the remainder of the exam was unremarkable. The patient does report suicidal ideation but denies any homicidal ideation. The patient had previously been on psychiatric medications after the former attempt of suicide but has been off medication for years now. The patient is otherwise stable, with no emergent interventions needed. Reviewed patient's labs and CBC is nondiagnostic and otherwise unremarkable; CMP does show a slightly increased anion gap at 12.2 but again unremarkable. Urinalysis is also unremarkable; the patient did have a slight amount of salicylate of 3.3, a positive drug screen for cocaine otherwise negative for other drugs, and ethyl alcohol of 39.9. Reviewed CT imaging which shows no acute worrisome findings. He is interested in in-patient treatment and agreeable to [place]. Discussed with Dr Gloria Home Meds and New Rx's Prescriptions: No Action No Known Home Meds Discharge Instructions Stand Alone Forms: Nursing Discharge Form Activity:: Activity as Tolerated Equipment/Supplies:: No Equipment Needed Diet:: As Tolerated Discharge Orders Discharge Orders: Discharge Order (Routine); Ordered 02/21/22 Ordered By: Nasreen Bledsoe DS: Summary Time Spent with Patient providing and/or coordinating discharge services: Less than 30 minutes Status at Discharge Functional status at discharge: independent ambulation Overall status at discharge: patient is progressing back to baseline Mental Status: mental status grossly normal Speech and Movement: speech and movement normal Mood: congruent mood Affect: normal affect Exam Psych Mental Status: mental status grossly normal Speech and Movement: speech and movement normal Mood: congruent mood Affect: normal affect DS: Data Vitals/I&O Vitals and I&O: Vital Signs Temperature 36.4 C L 02/21/22 08:21 Temperature Source Tympanic 02/21/22 08:21 Pulse 72 02/21/22 08:21 Pulse Rhythm Regular 02/21/22 08:30 Respiratory Rate 14 02/21/22 08:21 Respiratory Effort Non-Labored 02/21/22 08:30 Respiratory Depth Normal 02/21/22 00:08 Respiratory Pattern Normal 02/21/22 08:30 Blood Pressure 96/60 L 02/21/22 08:21 Pulse Oximetry 97 02/21/22 08:21 Oxygen Delivery Method Room Air 02/21/22 08:21 Oxygen Flow Rate 0 02/21/22 08:21 Pain Level 0 02/21/22 08:21 Intake & Output 02/20/22 02/21/22 02/21/22 23:59 11:59 23:59 Intake Total 240 / 480 240 / 480 Balance 240 / 480 240 / 480 Weight 81.647 kg Intake: Oral 240 / 480 240 / 480 Other: Comment Patient void in toilet at this time. Patient voided in toilet at this time. Data Completed and Pending Labs on day of discharge: Labs from last 24 hours 02/20/22 02/20/22 02/20/22 22:25 21:00 21:00 WBC RBC Hgb Hct MCV MCH MCHC RDW Plt Count MPV Immature Gran % Neutrophils % Lymphocytes % Monocytes % Eosinophils % Basophils % Nucleated RBC % Absolute Neutrophils Absolute Lymphocytes Absolute Monocytes Absolute Eosinophils Absolute Basophils Sodium Potassium Chloride Carbon Dioxide Anion Gap BUN Creatinine Estimated GFR/1.73 m2 Glucose Calcium Total Bilirubin AST ALT Alkaline Phosphatase Total Protein Albumin Urine Color Yellow Urine Clarity Clear Urine pH 6.0 Ur Specific [place] 1.010 Urine Protein Negative Urine Ketones Negative Urine Blood Negative Urine Nitrite Negative Urine Bilirubin Negative Urine Urobilinogen 0.2 Ur Leukocyte Esterase Negative Urine Glucose Negative Salicylates Urine Opiates Screen Negative Urine Methadone Screen Negative Acetaminophen Ur Barbiturates Screen Negative Ur Tricyclics Screen Negative Ur Amphetamines Screen Negative U Benzodiazepines Scrn Negative Urine Cocaine Screen Positive A Ur THC Screen Negative Ethyl Alcohol COVID-19 Source Nasal/Nares SARS-CoV-2 (PCR) Negative 02/20/22 02/20/22 02/20/22 20:45 20:45 20:45 WBC 10.51 RBC 4.68 Hgb 14.5 Hct 42.8 MCV 92 MCH 31.0 MCHC 33.9 RDW 12.8 Plt Count 298 MPV 9.3 Immature Gran % 0.3 Neutrophils % 68.8 Lymphocytes % 21.8 Monocytes % 6.9 Eosinophils % 1.0 Basophils % 1.2 Nucleated RBC % 0.0 Absolute Neutrophils 7.23 H Absolute Lymphocytes 2.29 Absolute Monocytes 0.72 Absolute Eosinophils 0.11 Absolute Basophils 0.13 Sodium 138 Potassium 3.7 Chloride 101 Carbon Dioxide 24.8 Anion Gap 12.2 H BUN 7 Creatinine 1.0 Estimated GFR/1.73 m2 >= 60.00 Glucose 96 Calcium 9.2 Total Bilirubin 0.6 AST 13 L ALT 27 Alkaline Phosphatase 55 Total Protein 8.1 Albumin 4.7 Urine Color Urine Clarity Urine pH Ur Specific [place] Urine Protein Urine Ketones Urine Blood Urine Nitrite Urine Bilirubin Urine Urobilinogen Ur Leukocyte Esterase Urine Glucose Salicylates 3.3 Urine Opiates Screen Urine Methadone Screen Acetaminophen < 2 Ur Barbiturates Screen Ur Tricyclics Screen Ur Amphetamines Screen U Benzodiazepines Scrn Urine Cocaine Screen Ur THC Screen Ethyl Alcohol 39.9 H COVID-19 Source SARS-CoV-2 (PCR) PFSH All Active Problems (Updated 02/21/22 @ 13:35 by Jonny Li) Substance abuse (Chronic) Depression (Chronic) Suicidal ideation (Acute) Social History Smoking/Tobacco Use Status: Current every day Tobacco Type: cigarettes Tobacco: How many years used: 16 Smoking risk assessment performed?: Yes Alcohol Intake: never Drug use: Daily Substance use type: marijuana Do you feel safe at home: Yes Do you feel safe in your relationship?: Yes
[2022-02-21 15:30] VITALS: BP 112/76; PULSE 78; RESP 16; TEMP 36.3; O2SAT 98
--- NOTE | 2022-02-21 16:49 | PDOC.MHPN2 ---
Date of service: 02/21/22 Time of Service: 11:30 Mental Health Emergency Note Release [facility] release signed:: Yes Reason for Visit Client is seeking treatment. In the last 2 weeks has the pt presented for ES prior to today?: No Client Information Client is: Adult Outpatient and Substance use Well Housed: Yes Non Suicidal Self Injury Current: No History: No Safety Risk/Harm to Self or Others Current Ideation to Harm Self or Others: No Risk: Does risk to harm exist?: yes. Access to means: No. Risk: Moderate Risk Duty to warn indicated: No Asssessment/Mental Status Appearance: Unremarkable Attitude: Guarded Behavior: Agitated Speech: Normal Affect: Cogruent with mood Mood: Stressed, Anxious and Irritable Thought process: Unremarkable Hallucinations: No Delusions: No Attention: Unremarkable Perception: Not impaired Orientation: Fully orientated Memory: Intact Insight: Poor Judgement: Poor Neurovegetative Symptoms Sleep: No change Appetitie: No change Interests: No change Energy: No change Libido: No change Substance Use: Do you use nicotine?: Yes Have you used substances in the last 7 days?: yes, Client smokes marijuana. Additional Issues: Assaultive/Threatening Behavior: No Medical Concerns: No Client engaged in active self harm w/weapon: Yes Threatening to run away: No Child reported abuse/neglect: No Voluntarily presenting for services: Yes Domestic violence is a concern: No Extreme Psychosis or extreme behavior is present: No Impression Client was very short with this content writer responding with one word answers. Client states he slept fine, appetite is fine, and he feels better today. Client reports he attempted to hang himself out of a poor impulse. Client has not had suicidal thoughts today. Client is staying at [facility] for voluntary admission. Plan/Disposition Recommended Disposition: Hospitalization ([facility], , [facility], [facility]) facilities contacted. Plan: Client will remain at [facility] until placement is found. Person reported agreement to plan: Yes Facilities contacted if Applicable [facility] (Client is being reviewed) Accepted, Pending review. Information Sent to [facility]: Referral and Medication Compliance [facility] Not accepted, No bed available [facility] Not accepted, No bed available, [facility] Accepted, Accepted/transfer pending. Information Sent to [place]: Referral and Medication Compliance Reports/communication Outcome discussed with: ED/Personnel
== END 2022-02-21 19:47 | disposition short-term general hospital (02) ==
LOC: ER 23:09 → MS 23:57
PROVIDERS: Emergency Medicine; Admitting Provider Family Medicine; Emergency Provider Nurse Practitioner Family; Visit Provider Family Medicine
DX: T14.91XA Suicide attempt, initial encounter (principal); T71.162A Asphyxiation due to hanging, intentional self-harm, initial encounter; F32.A Depression, unspecified; F19.10 Other psychoactive substance abuse, uncomplicated; F17.210 Nicotine dependence, cigarettes, uncomplicated; F12.90 Cannabis use, unspecified, uncomplicated; X83.8XXA Intentional self-harm by other specified means, initial encounter; F14.10 Cocaine abuse, uncomplicated; Z91.51 Personal history of suicidal behavior
CPT/HCPCS: 70498; 80053; 80307; 87635; 99285; 72125; 80320; 80329; 81003; 85025; 99217; 99219; 99284; G0378; J3490

== ENCOUNTER 2022-04-28 12:52 | Emergency (ER) | payer MEDICAID, SELFPAY ==
[2022-04-28 12:54] VITALS: BP 132/77; PULSE 85; RESP 16; TEMP 37; O2SAT 99
--- OUTSIDE RECORDS SUMMARY | 2022-04-28 12:56 | XMS_ITS | Encounter Summary ---
:1990 Demographics Home Phone Preferred Language Unknown Marital Status Unknown Hinduism Affiliation Unknown Race Unknown Ethnic Group Unknown Author Organization [facility] Address [address] [place] [address] Care Team Providers Name Role Phone Unavailable Primary Care Provider Unavailable Encounter Details Date Type Department Care Team Description 07/12/2021 Lab Requisition [facility] Outr Resulting Lab, Pathology & Laboratory Provider [facility] [address] [place] [address] Social History Tobacco Use Types Packs/Day Years Used Date Never Assessed Sex Assigned at Date Recorded Not on file documented as of this encounter Plan of Treatment Not on filedocumented as of this encounter Procedures Procedure Name Priority Date/Time Associated Diagnosis Comme nts COVID-19 TEST [facility] Today 07/11/2021 14:35 LAB PCR EST COVID-19 TESTING Routine 07/11/2021 14:35 Results for this EST procedure are i n the results section. documented in this encounter Results COVID-19 TEST [facility] LAB PCR (07/11/2021 14:35 EST) Specimen Swab Performing Organization Address City/State/ZIP Code Phon e Number [facility] [address] [place] [address] SERVICES (ABNORMAL) COVID-19 TESTING (07/11/2021 14:35 EST) COVID-19 rt-PCR Positive (AA) Negative [facility] Result Comment: LABORATORY This test has not been FDA c leared or approved. This test has been authorized by FDA under an EUA for use by authorized laboratories. This test has been authorized only for detection of nucleic acid fro SERVICES m 2019-nCoV, not for any oth er viruses or pathogens. This test is only authorized for the duration of the declaration that circumstances exist justifying the authorization of emergency use of in vitro d iagnostic tests for detectio n and/or diagnosis of 2019-nCoV under section 564(b)(1) of Act, 21 U.S.C ?? 360bbb-3(b) (1), unless the authorization is terminated or revoked sooner. Testing was performed using the evgeny SARS-CoV-2 assay ([employer] on the Evgeny 6800 System Performing Lab [facility]geny [address] [facility] Lab [facility] SERVICES Specimen Swab Performing Organization Address City/State/ZIP Code Phon e Number [facility] [address] [place] [address] SERVICES documented in this encounter Visit Diagnoses Not on filedocumented in this encounter Additional Health Concerns Infection Onset Date Last Indicated Resolved Time COVID-19 07/11/2021 07/11/2021 07/31/2021 22:15 EST documented as of this encounter
--- OUTSIDE RECORDS SUMMARY | 2022-04-28 12:56 | XMS_ITS | Clinical Summary ---
:1990 Demographics Home Phone Preferred Language Unknown Marital Status Unknown Gnosticism Affiliation Unknown Race Unknown Ethnic Group Unknown Author Organization [facility] Address [address] [place] [id number] Care Team Providers Name Role Phone Unavailable Primary Care Provider Unavailable Social History Tobacco Use Types Packs/Day Years Used Date Never Assessed Sex Assigned at Date Recorded Not on file Plan of Treatment Not on file
--- NOTE | 2022-04-28 13:06 | ED.GENADUL_ITS ---
Discharge Plan Disposition Patient Disposition: HOME Condition: Good Discharge Details Clinical Impression: URI (upper respiratory infection) Primary Care Provider: Unknown,Unknown ED Provider: Froy Baez Home Meds and New Rx's Prescriptions: New benzonatate 100 mg capsule 100 mg PO TID Qty: 30 0RF loratadine 10 mg tablet 10 mg PO DAILY Qty: 30 0RF budesonide-formoterol [Symbicort] 160-4.5 mcg/actuation HFA aerosol inhaler 2 puff inhalation BID Qty: 10.2 0RF No Action fluoxetine 40 mg capsule 1 cap PO DAILY Label Comments: 1 capsule by mouth once a day Discharge Instructions Instructions: Upper Respiratory Infection (ED) Additional Instructions: At this time your symptoms appear consistent with viral upper respiratory infection. Thankfully there is no evidence of pneumonia or ear infection or tonsillitis. Please do your best to stop smoking. Please take the loratadine as directed to help drain the fluid behind your ears and decrease the runny nose that you having. Please take the inhaler that has been prescribed 2 puffs every 12 hours to help with the cough and irritation, and take the cough medication to diminish her cough as needed. These prescriptions have been sent to your pharmacy on file. You will be contacted when your COVID flu and RSV returns if they are positive. If you notice any worsening of your symptoms, or any new symptoms such as vomiting, diarrhea, fever, chills, shortness of breath, chest pain, numbness, weakness, or fainting , please return immediately to the emergency department for reevaluation. Please follow up with your primary care provider as soon as possible for reassessment and reevaluation. As always, it was a pleasure participating in your medical care today. Medical Decision Making 31-year-old male who smokes regularly, presents today for evaluation of bilateral ear pain sore throat. Patient states symptoms have been present for the last week. He denies any documented fever. He denies any hemoptysis. No yellow or green or purulent sputum. Ear pain is slightly improved with NSAIDs but he states that he has not been taking much ibuprofen or Tylenol. No other complaints at this time. No other modifying factors. Exam demonstrates a well-appearing posterior oropharynx. No tonsillar exudates or enlargement. He has mild serous otitis media bilaterally, but no purulent otitis media. Lungs are clear, oxygenation excellent. We will test for flu COVID and RSV and contact the patient with the results. No indication for antibacterial treatment for his ears, and no clinical evidence of pneumonia. We will recommend loratadine, Tessalon Perles, and Symbicort inhaler. Recommend smoking cessation. Discussed red flags for which to return. I have extensively reviewed the treatment plan and discharge instructions with the patient. I have addressed all patient concerns at this time. The patient was made aware of what symptoms to monitor for that would warrant a return to the emergency department. Discussed the plan with the patient, they demonstrate verbal understanding and agreement with our assessment and plan at this time. The documentation in this chart was dictated using [employer] dictation software. Please excuse any dictation errors. Flu, COVID, RSV are negative. Patient was contacted. He is informed of the results.. HPI General Date/Time Provider Initiated Documentation: 04/28/22 12:53 . HPI Narrative: 31-year-old male who smokes regularly, presents today for evaluation of bilateral ear pain sore throat. Patient states symptoms have been present for the last week. He denies any documented fever. He denies any hemoptysis. No yellow or green or purulent sputum. Ear pain is slightly improved with NSAIDs but he states that he has not been taking much ibuprofen or Tylenol. No other complaints at this time. No other modifying factors. Related Data Home Medications Medication Instructions Recorded Confirmed benzonatate 100 mg capsule 100 mg PO TID #30 caps 04/28/22 budesonide-formoterol HFA 160 2 puff inhalation BID #10.2 grams 04/28/22 mcg-4.5 mcg/actuation aerosol inhaler (Symbicort) fluoxetine 40 mg capsule 1 cap PO DAILY 04/28/22 04/28/22 loratadine 10 mg tablet 10 mg PO DAILY #30 tabs 04/28/22 Previous Rx's Medication Instructions Recorded benzonatate 100 mg capsule 100 mg PO TID #30 caps 04/28/22 budesonide-formoterol HFA 160 2 puff inhalation BID #10.2 grams 04/28/22 mcg-4.5 mcg/actuation aerosol inhaler (Symbicort) loratadine 10 mg tablet 10 mg PO DAILY #30 tabs 04/28/22 Allergies Allergy/AdvReac Type Severity Reaction Status Date / Time amoxicillin AdvReac Mild Skin Rash Unverified 04/28/22 13:01 General Stated Complaint: EarProblem RITO: 4 Review of Systems All systems reviewed & are unremarkable except as noted in HPI and below PFSH All Active Problems URI (upper respiratory infection) (Acute) Substance abuse (Chronic) Depression (Chronic) Suicidal ideation (Acute) Social History Smoking/Tobacco Use Status: Current every day Tobacco Type: cigarettes Tobacco: How many years used: 16 Smoking risk assessment performed?: Yes Alcohol Intake: never Drug use: Daily Substance use type: marijuana Do you feel safe at home: Yes Do you feel safe in your relationship?: Yes Exam Narrative Exam Narrative: 1.Const: Well-nourished, Well-developed, appearing stated age 2.Eyes: PERRL, no conjunctival injection, and symmetrical lids. 3.ENT: Atraumatic external nose and ears. Moist MM. Neck: Symmetric, trachea midline, No thyromegaly. Mild serous effusion, no purulent effusion bilaterally. Mild crepitus noted in the left TMJ with movement. No significant erythema of the posterior oropharynx. No tonsillar enlargement. 4.CVS: +S1/S2, No murmurs or gallops. Peripheral pulses 2+ and equal in all extremities. Brisk capillary refill in all extremities. 5.RESP: Unlabored respiratory effort. Clear to auscultation bilaterally. No wheezes rales or rhonchi 6.GI: Soft, Nontender/Nondistended, No hepatosplenomegaly. No guarding or rebound. 7.MSK: Normocephalic/Atraumatic, Extremities w/o deformity or ttp No cyanosis or clubbing, Normal movement of all extremities 8.Skin: Warm, Dry. No rashes or lesions. 9.Neuro: gin feeder II-XII grossly intact. Sensation grossly intact, no focal neurologic deficits. 10.Psych: (AAO) x3. Appropriate mood and affect Course Vital Signs Vital signs: Vital Signs Temperature 37.0 C 04/28/22 12:54 Pulse 85 04/28/22 12:54 Respiratory Rate 16 04/28/22 12:54 Blood Pressure 132/77 04/28/22 12:54 Pulse Oximetry 99 04/28/22 12:54 Temperature 37.0 C 04/28/22 12:54 Temperature Source Temporal Artery Scan 04/28/22 12:54 Pulse 85 04/28/22 12:54 Respiratory Rate 16 04/28/22 12:54 Respiratory Effort Non-Labored 04/28/22 12:59 Blood Pressure 132/77 04/28/22 12:54 Blood Pressure Position Sitting 04/28/22 12:54 Pulse Oximetry 99 04/28/22 12:54 Oxygen Delivery Method Room Air 04/28/22 12:54 Oxygen Flow Rate 0 04/28/22 12:54 Pain Level 6 04/28/22 13:00
[2022-04-28 13:50] LABS: COVID-19 PCR Negative (Negative); Influenza A PCR Negative (Negative); Influenza B PCR Negative (Negative); RSV PCR Negative (Negative)
== END 2022-04-28 13:14 | disposition home or self-care (01) ==
PROVIDERS: Emergency Provider Student in an Organized Health Care Education/Training Program
DX: J06.9 Acute upper respiratory infection, unspecified (principal); Z20.822 Contact with and (suspected) exposure to COVID-19; F17.210 Nicotine dependence, cigarettes, uncomplicated
CPT/HCPCS: 87637; 99283; 99284

== ENCOUNTER 2022-10-29 03:41 | Emergency (ER) | payer MEDICAID, SELFPAY ==
[2022-10-29] VITALS (17 sets, daily range): BP systolic 113–160; BP diastolic 76–101; PULSE 73–91; RESP 16–25; TEMP 37.1; O2SAT 97–99
--- NOTE | 2022-10-29 03:45 | RT.EKG_ITS ---
APPROVED REPORT Exam: Resting ECG Reason for Exam: chest sensation Patient Location: E HR:85 bpm ECG Measurements Heart Rate 85 AXIS KS 153 P 23 QRSd 105 QRS -73 QT 414 T 25 QTc 492 Conclusion Sinus rhythm...normal P axis, V-rate 60- 99 Left anterior fascicular block...axis(240,-40), init forces inf Prolonged QT interval...QTc >488mS I have reviewed and interpreted ECG and agree with software generated interpretation.
--- NOTE | 2022-10-29 03:48 | ED.GENADUL_ITS ---
Discharge Plan Disposition Patient Disposition: Home Condition: Good Discharge Details Chief Complaint: OD/Poison Clinical Impression: Substance abuse Primary Care Provider: Unknown,Unknown ED Provider: Froy Baez Home Meds and New Rx's Prescriptions: No Action fluoxetine 40 mg capsule 1 cap PO DAILY Patient Comments: 1 capsule by mouth once a day benzonatate 100 mg capsule 100 mg PO TID Qty: 30 0RF loratadine 10 mg tablet 10 mg PO DAILY Qty: 30 0RF budesonide-formoterol [Symbicort] 160-4.5 mcg/actuation HFA aerosol inhaler 2 puff inhalation BID Qty: 10.2 0RF Discharge Instructions Additional Instructions: At this time your work-up is stable. Your potassium was slightly low but we have corrected this. Please avoid any drug use as there is always concern for potential negative reaction. If you notice any worsening of your symptoms, or any new symptoms such as vomiting, diarrhea, fever, chills, shortness of breath, chest pain, numbness, weakness, or fainting , please return immediately to the emergency department for reevaluation. Please follow up with your primary care provider as soon as possible for reassessment and reevaluation. As always, it was a pleasure participating in your medical care today. Medical Decision Making 32-year-old male with a past medical history of drug use presents today after taking some drugs. Patient states that about an hour or so ago he smoked some crack cocaine, however he started feeling weird shortly thereafter and felt that it might of been cut with something. He has come in for further evaluation. He does not know what potential substance that was cut with. He states that his eyes feel heavy, his fingers tingly, and he feels like something is weird and off. He denies any focal chest pain, headache, focal vision changes, or other complaints. He denies any alcohol use, or taking any other drugs. Exam demonstrates stable vital signs aside from mild hypertension. Heart rate normal. Pupils are neither pinpoint nor dilated. Negative Chvostek sign. Negative Trousseau sign. Sensation intact. Differential is broad for potential other etiology that might be causing his symptoms. No focal deficits noted otherwise. We will get an EKG to make sure the patient's intervals are stable, we will perform UDS, acetaminophen and salicylate levels. We will gently rehydrate, monitor closely and reassess. 5:05 AM Laboratory work-up is returned and is relatively stable, mild white count, no bandemia. Electrolytes stable aside for slightly low potassium at 3.1. This was corrected with 40 mill equivalents of oral potassium. Salicylates acetaminophen are unremarkable. Cocaine and THC was positive for the UDS, all others were negative. Alcohol level negative. On reassessment patient is feeling much better and is asking to go home. He states that his is cheating on him and he found this out tonight, and he feels that stress may have been a component of the symptoms in addition to the drug use. Patient is otherwise stable and appropriate for discharge. Recommend avoidance of cocaine in the future. Discussed red flags for which to return. I have extensively reviewed the treatment plan and discharge instructions with the patient. I have addressed all patient concerns at this time. The patient was made aware of what symptoms to monitor for that would warrant a return to the emergency department. Discussed the plan with the patient, they demonstrate verbal understanding and agreement with our assessment and plan at this time. The documentation in this chart was dictated using [employer] dictation software. Please excuse any dictation errors. HPI General Date/Time Provider Initiated Documentation: 10/29/22 03:42 . HPI Narrative: 32-year-old male with a past medical history of drug use presents today after taking some drugs. Patient states that about an hour or so ago he smoked some crack cocaine, however he started feeling weird shortly thereafter and felt that it might of been cut with something. He has come in for further evaluation. He does not know what potential substance that was cut with. He states that his eyes feel heavy, his fingers tingly, and he feels like something is weird and off. He denies any focal chest pain, headache, focal vision changes, or other complaints. He denies any alcohol use, or taking any other drugs. Related Data Home Medications Medication Instructions Recorded Confirmed benzonatate 100 mg capsule 100 mg PO TID #30 caps 04/28/22 budesonide-formoterol HFA 160 2 puff inhalation BID #10.2 grams 04/28/22 mcg-4.5 mcg/actuation aerosol inhaler (Symbicort) fluoxetine 40 mg capsule 1 cap PO DAILY 04/28/22 04/28/22 loratadine 10 mg tablet 10 mg PO DAILY #30 tabs 04/28/22 Previous Rx's Medication Instructions Recorded benzonatate 100 mg capsule 100 mg PO TID #30 caps 04/28/22 budesonide-formoterol HFA 160 2 puff inhalation BID #10.2 grams 04/28/22 mcg-4.5 mcg/actuation aerosol inhaler (Symbicort) loratadine 10 mg tablet 10 mg PO DAILY #30 tabs 04/28/22 Allergies Allergy/AdvReac Type Severity Reaction Status Date / Time amoxicillin AdvReac Mild Skin Rash Unverified 04/28/22 13:01 General Stated Complaint: OD/Poison RITO: 3 Review of Systems All systems reviewed & are unremarkable except as noted in HPI and below PFSH All Active Problems (Updated 10/29/22 @ 05:04 by Froy Baez DO) Substance abuse (Chronic) Depression (Chronic) Suicidal ideation (Acute) Social History Smoking/Tobacco Use Status: Current every day Tobacco Type: cigarettes Tobacco: How many years used: 16 Smoking risk assessment performed?: Yes Alcohol Intake: never Drug use: Daily Substance use type: marijuana and crack/cocaine Do you feel safe at home: Yes Do you feel safe in your relationship?: Yes Exam Narrative Exam Narrative: 1.Const: Well-nourished, Well-developed, appearing stated age 2.Eyes: PERRL, no conjunctival injection, and symmetrical lids. 3.ENT: Atraumatic external nose and ears. Moist MM. Neck: Symmetric, trachea midline, No thyromegaly. 4.CVS: +S1/S2, No murmurs or gallops. Peripheral pulses 2+ and equal in all extremities. Brisk capillary refill in all extremities. 5.RESP: Unlabored respiratory effort. Clear to auscultation bilaterally. No wheezes rales or rhonchi 6.GI: Soft, Nontender/Nondistended, No hepatosplenomegaly. No guarding or rebound. 7.MSK: Normocephalic/Atraumatic, Extremities w/o deformity or ttp No cyanosis or clubbing, Normal movement of all extremities 8.Skin: Warm, Dry. No rashes or lesions. 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 Sensation grossly intact, no focal neurologic deficits. 10.Psych: (AAO) x3. Appropriate mood and affect Course Vital Signs Vital signs: Vital Signs Pulse 89 10/29/22 03:43 Respiratory Rate 16 10/29/22 03:43 Blood Pressure 160/90 H 10/29/22 03:43 Pulse Oximetry 99 10/29/22 03:43 Pulse 89 10/29/22 03:43 Respiratory Rate 16 10/29/22 03:43 Blood Pressure 160/90 H 10/29/22 03:43 Blood Pressure Position Sitting 10/29/22 03:43 Pulse Oximetry 99 10/29/22 03:43 Oxygen Delivery Method Room Air 10/29/22 03:43 Oxygen Flow Rate 0 10/29/22 03:43 Pain Level 0 10/29/22 03:43
[2022-10-29] MEDS: Normal Saline 1,000 ML 1000 ML IV (03:59)
[2022-10-29 04:00] LABS: Abs Immature Grans 0.05 10^3/uL (0.0-0.06); Absolute Basophil Count 0.13 10^3/uL (0.0-0.2); Absolute Eosinophil Count 0.44 10^3/uL (0.0-0.7); Absolute Lymphocyte Count 1.55 10^3/uL (1.2-3.4); Absolute Neutrophil Count 10.25 10^3/uL (1.2-6.7); Eosinophils % 3.3; HCT 40.8 % (40.0-50.0); HGB 13.9 g/dL (13.5-17.5); Immature Grans % 0.4; Lymphocytes % 11.7; MCH 30.8 pg (27.0-33.0); MCHC 34.1 % (32.0-36.0); MCV 90 fL (80-95); MPV 9.4 fL (8.0-11.0); Monocytes % 6.5; Neutrophils % 77.1; Platelet Count 283 10^3/uL (130-400); RBC 4.52 10^6/uL (4.36-5.78); RDW 12.9 % (11.8-14.1); RDW-SD 42.2 fL; WBC 13.29 10^3/uL (4.4-10.8)
[2022-10-29 04:01] LABS: Absolute Monocyte Count 0.86 10^3/uL (0.1-0.8)
[2022-10-29 04:21] LABS: Salicylate 3.5 mg/dL (<2.8)
[2022-10-29 04:22] LABS: Acetaminophen < 2 ug/mL (10-30)
[2022-10-29 04:26] LABS: ALT 17 U/L (16-63); AST 15 U/L (15-37); Albumin 4.5 g/dL (3.4-5.0); Alkaline Phosphatase 52 U/L (46-116); Anion Gap 12.8 mmol/L (3-11); BUN 12 mg/dL (7-18); Bilirubin, Total 0.9 mg/dL (0.2-1.0); CO2 23.2 mmol/L (21.0-32.0); CREATININE 1.1 mg/dL (0.70-1.30); Calcium 8.9 mg/dL (8.5-10.1); Chloride 105 mmol/L (98-107); Estimated GFR 90.34 (mL/min/1.73m2); Glucose 104 mg/dL (74-106); Potassium 3.1 mmol/L (3.5-5.1); Sodium 141 mmol/L (136-145); TSH (W/Ref FT4) 1.06 uIU/mL (0.36-3.74); Total Protein 7.6 g/dL (6.4-8.2)
[2022-10-29 04:29] LABS: ETHANOL BLOOD < 3.0 mg/dL (<10)
[2022-10-29] MEDS: Potassium Chloride 20 MEQ TABCR 40 MEQ PO (04:52)
[2022-10-29 04:56] LABS: *AMPHETAMINES SCREEN URINE Negative (Negative); *BARBITURATES SCREEN URINE Negative (Negative); *BENZODIAZEPINES SCREEN URINE Negative (Negative); Cannabinoids THC Positive (Negative); Cocaine Screen,Urine Positive (Negative); METHADONE URINE SCREEN Negative (Negative); OPIATES URINE SCREEN Negative (Negative); Tricyclic Antidepressants Negative (Negative)
== END 2022-10-29 05:10 | disposition home or self-care (01) ==
PROVIDERS: Emergency Provider Student in an Organized Health Care Education/Training Program
DX: F14.10 Cocaine abuse, uncomplicated (principal); R03.0 Elevated blood-pressure reading, without diagnosis of hypertension; E87.6 Hypokalemia; R07.89 Other chest pain
CPT/HCPCS: 36415; 80053; 80307; 93005; 96360; 99284; 80320; 80329; 84443; 85025; 93010

== ENCOUNTER 2023-01-28 03:39 | Emergency (ER) | payer MEDICAID, SELFPAY ==
[2023-01-28 03:47] VITALS: BP 116/86; PULSE 85; RESP 12; TEMP 36.8; O2SAT 99
--- NOTE | 2023-01-28 04:01 | ED.GENADUL_ITS ---
Discharge Plan Disposition Patient Disposition: Home Condition: Stable Discharge Details Clinical Impression: Drug side effects Primary Care Provider: Kristina,Local ED Provider: Asad Guadarrama Home Meds and New Rx's Prescriptions: Continued fluoxetine 40 mg capsule 1 cap PO DAILY Patient Comments: 1 capsule by mouth once a day benzonatate 100 mg capsule 100 mg PO TID Qty: 30 0RF loratadine 10 mg tablet 10 mg PO DAILY Qty: 30 0RF budesonide-formoterol [Symbicort] 160-4.5 mcg/actuation HFA aerosol inhaler 2 puff inhalation BID Qty: 10.2 0RF Discharge Instructions Additional Instructions: Your blood work did not show concerning findings at this time follow up with your primary care provider within 1-2 weeks if symptoms return if you feel more ill, have difficulty breathing or severe pain return to the emergency department Medical Decision Making 32 yo male with hx of substance abuse comes in after he smoked what he thought was crack approximately an hour ago, thought it tasted different and started to feel general weakness and nausea and didn't feel like his normal high with crack so came here. HE arrives hemodynamically stable with normal gait. HE states he feels like the symptoms are improving. Denies headache, chest pain, dyspnea, abdominal pain. He has clear lungs, no murmurs, soft nontender abdomen, CN II- XII intact and no focal motor or sensation deficits. Suspect drug reaction from what he smoked, will evaluate for possible electrolyte abnormalities and reassess. Denies si/hi and is calm and cooperative. no significant findings on labs, patient now asymptomatic requesting d/c, still no deficits on exam, caox4 with clear speech, suspect this was drug side effect, advised to f/u with pcp and return precautions given Differential Diagnosis Differential Diagnosis: drug reaction, overdose Medical Records Medical records reviewed: Yes I reviewed the patient's medical records. Lab Data Lab results reviewed: Yes I reviewed the patient's lab results. HPI General Mode of arrival: ambulatory . Date/Time Provider Initiated Documentation: 01/28/23 03:43 . Limitations to Documentation: no limitations . Information obtained by: patient . History of Present Illness 32 year old M pr esents to the emergency department with the chief complaint of feel off, described as moderate, Patient started experiencing this hour(s) (1) and it has been other (improving). No relieving factors improve symptom(s), No exacerbating factors reported . Patient notes denies chest pain and shortness of breath. Patient did receive the following treatments prior to arrival, none Related Data Home Medications Medication Instructions Recorded Confirmed benzonatate 100 mg capsule 100 mg PO TID #30 caps 04/28/22 budesonide-formoterol HFA 160 2 puff inhalation BID #10.2 grams 04/28/22 mcg-4.5 mcg/actuation aerosol inhaler (Symbicort) fluoxetine 40 mg capsule 1 cap PO DAILY 04/28/22 04/28/22 loratadine 10 mg tablet 10 mg PO DAILY #30 tabs 04/28/22 Previous Rx's Medication Instructions Recorded benzonatate 100 mg capsule 100 mg PO TID #30 caps 04/28/22 budesonide-formoterol HFA 160 2 puff inhalation BID #10.2 grams 04/28/22 mcg-4.5 mcg/actuation aerosol inhaler (Symbicort) loratadine 10 mg tablet 10 mg PO DAILY #30 tabs 04/28/22 Allergies Allergy/AdvReac Type Severity Reaction Status Date / Time amoxicillin AdvReac Mild Skin Rash Unverified 04/28/22 13:01 General Stated Complaint: Dizzy/Sync RITO: 3 Review of Systems All systems reviewed & are unremarkable except as noted in HPI and below Constitutional Constitutional: Denies chills and Denies fever(s) ENT Ears, Nose, Mouth, and Throat: Denies change in voice Cardiovascular Cardiovascular: Denies chest pain and Denies dyspnea Respiratory Respiratory: Denies cough and Denies dyspnea Gastrointestinal Gastrointestinal: Denies abdominal pain and Denies vomiting Musculoskeletal Musculoskeletal: Denies joint swelling Psychiatric Psychiatric: Reports depression PFSH All Active Problems (Updated 01/28/23 @ 05:01 by Asad Guadarrama MD) Drug side effects (Acute) Substance abuse (Chronic) Depression (Chronic) Suicidal ideation (Acute) Social History Smoking/Tobacco Use Status: Current every day Tobacco Type: cigarettes Tobacco: How many years used: 16 Smoking risk assessment performed?: Yes Alcohol Intake: never Drug use: Daily Substance use type: marijuana and crack/cocaine Do you feel safe at home: Yes Do you feel safe in your relationship?: Yes Exam Const General: no acute distress Orientation: alert HENMT Head: normal to inspection Ears: external ears normal General nose exam: external nose normal Mouth: moist mucous membranes Eyes General: appearance normal, both eyes and all related structures Neck Neck: normal visual inspection Resp Effort & Inspection: normal respiratory effort and able to speak in complete sentences Auscultation: clear to auscultation bilaterally Cardio Jugular venous pressure: no JVD Rate: regular rate Heart Sounds: no murmurs GI Palpation: soft and nontender Skin General skin exam: no rashes or lesions noted Neuro General: patient alert and patient oriented x3 Extrem General: normal to inspection Psych Mental Status: mental status grossly normal Course Vital Signs Vital signs: Vital Signs Temperature 36.8 C 01/28/23 03:47 Pulse 85 01/28/23 03:47 Respiratory Rate 12 01/28/23 03:47 Blood Pressure 116/86 01/28/23 03:47 Pulse Oximetry 99 01/28/23 03:47 Temperature 36.8 C 01/28/23 03:47 Temperature Source Tympanic 01/28/23 03:47 Pulse 85 01/28/23 03:47 Respiratory Rate 12 01/28/23 03:47 Respiratory Effort Normal 01/28/23 03:52 Blood Pressure 116/86 01/28/23 03:47 Pulse Oximetry 99 01/28/23 03:47 Oxygen Delivery Method Room Air 01/28/23 03:47 Oxygen Flow Rate 0 01/28/23 03:47
[2023-01-28] MEDS: Normal Saline 1,000 ML 1000 ML IV (04:17)
[2023-01-28 04:20] LABS: Abs Immature Grans 0.04 10^3/uL (0.0-0.06); Absolute Basophil Count 0.14 10^3/uL (0.0-0.2); Absolute Eosinophil Count 0.68 10^3/uL (0.0-0.7); Absolute Lymphocyte Count 2.68 10^3/uL (1.2-3.4); Absolute Monocyte Count 0.59 10^3/uL (0.1-0.8); Basophils % 1.3; Eosinophils % 6.3; HGB 14.6 g/dL (13.5-17.5); Immature Grans % 0.4; MCH 31.5 pg (27.0-33.0); MCV 93 fL (80-95); MPV 9.2 fL (8.0-11.0); Monocytes % 5.5; Neutrophils % 61.5; Platelet Count 317 10^3/uL (130-400); RBC 4.64 10^6/uL (4.36-5.78); RDW 12.1 % (11.8-14.1); RDW-SD 41.9 fL; WBC 10.73 10^3/uL (4.4-10.8)
[2023-01-28 04:21] LABS: Bilirubin Negative (Negative); Blood Negative (Negative); Clarity Clear (Clear); Glucose Negative (Negative); Ketones Negative (Negative); Leukocyte Esterase Negative (Negative); Nitrite Negative (Negative); Urobilinogen 0.2 mg/dL (Up to 0.2)
[2023-01-28 04:32] LABS: Magnesium 2.4 mg/dL (1.8-2.4)
[2023-01-28 04:33] LABS: *AMPHETAMINES SCREEN URINE Negative (Negative); *BARBITURATES SCREEN URINE Negative (Negative); *BENZODIAZEPINES SCREEN URINE Negative (Negative); Cannabinoids THC Positive (Negative); Cocaine Screen,Urine Positive (Negative); METHADONE URINE SCREEN Negative (Negative); OPIATES URINE SCREEN Negative (Negative)
[2023-01-28 04:34] LABS: Tricyclic Antidepressants Negative (Negative)
[2023-01-28 04:37] LABS: ALT 16 U/L (16-63); AST 10 U/L (15-37); Albumin 4.3 g/dL (3.4-5.0); Alkaline Phosphatase 60 U/L (46-116); Anion Gap 8.1 mmol/L (3-11); BUN 10 mg/dL (7-18); Bilirubin, Total 0.3 mg/dL (0.2-1.0); CO2 26.9 mmol/L (21.0-32.0); Calcium 8.9 mg/dL (8.5-10.1); Chloride 104 mmol/L (98-107); Estimated GFR 101.28 (mL/min/1.73m2); Glucose 109 mg/dL (74-106); Potassium 3.7 mmol/L (3.5-5.1); Sodium 139 mmol/L (136-145); Total Protein 7.5 g/dL (6.4-8.2)
[2023-01-28 04:42] LABS: Acetaminophen < 2 ug/mL (10-30)
[2023-01-28 04:57] LABS: ETHANOL BLOOD < 3.0 mg/dL (<10)
== END 2023-01-28 05:08 | disposition home or self-care (01) ==
PROVIDERS: Emergency Provider Emergency Medicine
DX: R42 Dizziness and giddiness (principal); T40.5X1A Poisoning by cocaine, accidental (unintentional), initial encounter
CPT/HCPCS: 80053; 80307; 99283; 80320; 80329; 81003; 83735; 85025

== ENCOUNTER 2023-01-31 12:00 | Emergency (ER) | payer MEDICAID, SELFPAY ==
[2023-01-31 12:01] VITALS: BP 128/85; PULSE 92; RESP 16; TEMP 36.8; O2SAT 100
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
== END 2023-01-31 13:16 | disposition home or self-care (01) ==
PROVIDERS: Emergency Provider Student in an Organized Health Care Education/Training Program
DX: S02.2XXA Fracture of nasal bones, initial encounter for closed fracture (principal); Y09 Assault by unspecified means
CPT/HCPCS: 99283

== ENCOUNTER 2023-04-26 13:29 | Emergency (ER) | payer MEDICAID, SELFPAY ==
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
[2023-04-26 13:33] VITALS: BP 120/83; PULSE 82; RESP 20; TEMP 36.9; O2SAT 99
--- NOTE | 2023-04-26 13:39 | W.ED.GENAD ---
Discharge Plan Disposition Patient Disposition: Home Condition: Good Discharge Details Chief Complaint: Orthopedic Clinical Impression: Acute pain of left shoulder, Acromioclavicular joint injury Primary Care Provider: Cecilia Acevedo ED Provider: Froy Baez Home Meds and New Rx's Prescriptions: No Action fluoxetine 40 mg capsule 1 cap PO DAILY Patient Comments: 1 capsule by mouth once a day loratadine 10 mg tablet 10 mg PO DAILY Qty: 30 0RF budesonide-formoterol [Symbicort] 160-4.5 mcg/actuation HFA aerosol inhaler 2 puff inhalation BID Qty: 10.2 0RF Discharge Instructions Instructions: Shoulder Pain (ED) Additional Instructions: At this time your x-ray shows no evidence of fracture. There is also no dislocation of your AC joint. I suspect you bruised and contused that area. Please take Tylenol and Motrin for pain. Please ice the area frequently over the next 3 to 4 days. If you have persistent pain after 2 to 3 weeks of therapy, you may require repeat imaging with an MRI. If you notice any worsening of your symptoms, or any new symptoms such as vomiting, diarrhea, fever, chills, shortness of breath, chest pain, numbness, weakness, or fainting , please return immediately to the emergency department for reevaluation. Please follow up with your primary care provider as soon as possible for reassessment and reevaluation. As always, it was a pleasure participating in your medical care today. 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 Patient states that yesterday he was hit by a large steel bar in the left shoulder. He has since had pain with movement in the left shoulder. He denies any numbness tingling or weakness in the lower extremity otherwise. He denies any chest pain or shortness of breath otherwise. No other complaints at this time. Pain is made worse with movement of the left shoulder. He has not taken any NSAIDs for the pain. No other modifying factors. Exam demonstrates well-appearing male, tenderness over the left AC joint. No clavicular humeral head or scapular spine tenderness. Pain in the shoulder is worsened with external rotation and posterior movement actively and passively. Concern for AC joint partial dislocation or injury. We will get x-ray to rule out fracture. Will give NSAIDs, will monitor closely and reassess. 2:30 PM X-ray negative for acute process. Suspect contusion to AC joint. Recommend continued NSAIDs and ice at home. Discussed red flags which to return. I have extensively reviewed the treatment plan and discharge instructions with the patient. I have addressed all patient concerns at this time. The patient was made aware of what symptoms to monitor for that would warrant a return to the emergency department. Discussed the plan with the patient, they demonstrate verbal understanding and agreement with our assessment and plan at this time. The documentation in this chart was dictated using [employer] dictation software. Please excuse any dictation errors. FINDINGS: BONES: No acute fracture is present. No bony destructive lesion is seen. JOINTS: No dislocation present. Mild degenerative changes are seen at the acromioclavicular joint. The glenohumeral joint is unremarkable. SOFT TISSUE: Normal. IMPRESSION: No acute fracture or dislocation. HPI General Date/Time Provider Initiated Documentation: 04/26/23 13:33. 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 Patient states that yesterday he was hit by a large steel bar in the left shoulder. He has since had pain with movement in the left shoulder. He denies any numbness tingling or weakness in the lower extremity otherwise. He denies any chest pain or shortness of breath otherwise. No other complaints at this time. Pain is made worse with movement of the left shoulder. He has not taken any NSAIDs for the pain. No other modifying factors. Related Data Home Medications Medication Instructions Recorded Confirmed budesonide-formoterol HFA 160 2 puff inhalation BID #10.2 grams 04/28/22 04/26/23 mcg-4.5 mcg/actuation aerosol inhaler (Symbicort) fluoxetine 40 mg capsule 1 cap PO DAILY 04/28/22 04/26/23 loratadine 10 mg tablet 10 mg PO DAILY #30 tabs 04/28/22 04/26/23 Previous Rx's Medication Instructions Recorded budesonide-formoterol HFA 160 2 puff inhalation BID #10.2 grams 04/28/22 mcg-4.5 mcg/actuation aerosol inhaler (Symbicort) loratadine 10 mg tablet 10 mg PO DAILY #30 tabs 04/28/22 Allergies Allergy/AdvReac Type Severity Reaction Status Date / Time amoxicillin AdvReac Mild Skin Rash Unverified 04/26/23 13:38 General Stated Complaint: Orthopedic RITO: 4 Review of Systems All systems reviewed & are unremarkable except as noted in HPI and below PFSH All Active Problems (Updated 04/26/23 @ 14:31 by Froy Baez DO) Acromioclavicular joint injury (Acute) Acute pain of left shoulder (Acute) Substance abuse (Chronic) Depression (Chronic) Suicidal ideation (Acute) Social History Smoking/Tobacco Use Status: Current every day Tobacco Type: cigarettes Tobacco: How many years used: 16 Smoking risk assessment performed?: Yes Alcohol Intake: never Drug use: Daily Substance use type: marijuana and crack/cocaine Do you feel safe at home: Yes Do you feel safe in your relationship?: Yes Exam Narrative Exam Narrative: 1.Const: Well-nourished, Well-developed, appearing stated age 2.Eyes: PERRL, no conjunctival injection, and symmetrical lids. 3.ENT: Atraumatic external nose and ears. Moist MM. Neck: Symmetric, trachea midline, No thyromegaly. 4.CVS: +S1/S2, No murmurs or gallops. Peripheral pulses 2+ and equal in all extremities. Brisk capillary refill in all extremities. 5.RESP: Unlabored respiratory effort. Clear to auscultation bilaterally. No wheezes rales or rhonchi 6.GI: Soft, Nontender/Nondistended, No hepatosplenomegaly. No guarding or rebound. 7.MSK: Normocephalic/Atraumatic, Extremities w/o deformity however there definitely is an increased elevation/space in the left AC joint. Mild tenderness over the AC joint itself. No clavicular tenderness. No significant scapular spine tenderness. No pain over the humeral head. Pain in the shoulder is worsened with external rotation, mildly worsened with internal rotation. Notably worsened with posterior movement actively and passively. No significant pain with anterior movement. Distal hand exam demonstrates normal sensation and strength. Normal pulses and capillary refill. 8.Skin: Warm, Dry. No rashes or lesions. 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 Sensation grossly intact, no focal neurologic deficits. 10.Psych: (AAO) x3. Appropriate mood and affect Course Vital Signs Vital signs: Vital Signs Temperature 36.9 C 04/26/23 13:33 Pulse 82 04/26/23 13:33 Respiratory Rate 20 04/26/23 13:33 Blood Pressure 120/83 04/26/23 13:33 Pulse Oximetry 99 04/26/23 13:33 Temperature 36.9 C 04/26/23 13:33 Pulse 82 04/26/23 13:33 Respiratory Rate 20 04/26/23 13:33 Blood Pressure 120/83 04/26/23 13:33 Blood Pressure Position Sitting 04/26/23 13:33 Pulse Oximetry 99 04/26/23 13:33 Oxygen Delivery Method Room Air 04/26/23 13:33 Oxygen Flow Rate 0 04/26/23 13:33 Pain Level 6 04/26/23 13:33
[2023-04-26] MEDS: Acetaminophen 500 MG TAB 1000 MG PO (14:26)
[2023-04-26] MEDS: Ibuprofen 800 MG TAB PO (14:26)
== END 2023-04-26 14:37 | disposition home or self-care (01) ==
PROVIDERS: Emergency Provider Student in an Organized Health Care Education/Training Program
DX: M25.512 Pain in left shoulder (principal); S49.92XA Unspecified injury of left shoulder and upper arm, initial encounter
CPT/HCPCS: 99282; 73030; 99283

== ENCOUNTER 2023-05-28 20:04 | Emergency (ER) | payer MEDICAID, SELFPAY ==
[2023-05-28] VITALS (31 sets, daily range): BP systolic 113–141; BP diastolic 38–102; PULSE 72–112; RESP 12–32; TEMP 37.2; O2SAT 97–100
--- NOTE | 2023-05-28 20:00 | RT.EKG_ITS ---
APPROVED REPORT Exam: Resting ECG Reason for Exam: chest pain Patient Location: E HR:82 bpm ECG Measurements Heart Rate 82 AXIS IA 156 P 40 QRSd 103 QRS 263 QT 414 T 42 QTc 474 Conclusion Sinus rhythm...normal P axis, V-rate 60- 99 Sinus pause...long R-R interval, normal QRSd Left anterior fascicular block...axis(240,-40), init forces inf ST elev, probable normal early repol pattern...ST elevation, age<55 Physician: no STEMI, minimal ST elevation, but appears to be repolarization, no tomb stoning. No rey dence of STEMI. No depressions.
--- NOTE | 2023-05-28 20:15 | DI.CT_ITS ---
Exam(s) CT THORAX CTA EXAM: CT THORAX CTA CLINICAL HISTORY: Crack cocaine use, chest pain, rule out dissection. TECHNIQUE: Imaging Protocol: CT angiography of the chest was performed using pulmonary embolus kenia col. Multi planar reconstructions were performed. CONTRAST MATERIAL: Intravenous: Omnipaque 350 Contrast volume: 100 cc COMPARISON: CT CT CAROTID NECK CTA from 02/20/2022 FINDINGS: CHEST: AORTA: Thoracic aorta appears unremarkable. Normal diameter. No evidence of dissection. No pericar dial effusion. Normal heart size. PULMONARY ARTERIES: There are no obvious intraluminal filling defects to suggest acute pulmonary embo li. LUNGS: There are no infiltrates nor evidence of pulmonary infarction.. There are no pleural effusions . MEDIASTINUM: There is no hilar nor mediastinal adenopathy. Visualized thyroid unremarkable. CARDIAC: Heart size is upper normal. There is no pericardial effusion.Caliber of the thoracic aorta is within normal limits. There is no significant shift of the interventricular septum. PARTIALLY VISUALIZED UPPERMOST ABDOMEN: No obvious findings OSSEOUS: No significant osseous lesions.. IMPRESSION: 1. No evidence of aortic dissection nor pericardial effusion. Diameter of the thoracic aorta is uppe r normal.. 2. No obvious pulmonary emboli. No pulmonary infarct. 3. No infiltrates nor pleural effusions nor ominous pulmonary nodules. There is no pneumothorax. RADIATION DOSE DELIVERED: Total DLP DATA REPOSITORY: All CT scans at this facility are submitted to the National Radiology Data Registry (NRDR) Dose Index Registry (DIR) with the [employer] ([employer]). RADIATION OPTIMIZATION: All CT scans at this facility use at least one of these dose optimization te chniques: automated exposure control; mA and/or kV adjustment per patient size (includes targeted exa ms where dose is matched to clinical indication); or iterative reconstruction.
--- NOTE | 2023-05-28 20:15 | DI.CT_ITS ---
Exam(s) CT HEAD WO EXAM: CT HEAD WO CLINICAL HISTORY: Persistent rhinorrhea, crack snorting, headache,. TECHNIQUE: Imaging Protocol: Axial computed tomography images with coronal and sagittal reformatted images were created and reviewed COMPARISON: No exams were available for comparison FINDINGS: There are no skull fractures. Mucosal thickening is noted in both maxillary sinuses, more prominent o n the left side. No obvious fluid levels. Other paranasal sinuses are clear as are the mastoid air cells. There is no evidence of intracranial hemorrhage, mass effect, or shift of midline structures. There are no extra-axial fluid collections. The ventricles are not enlarged or shifted and there is no blo od within the ventricular system nor within the basal cisterns. IMPRESSION: No acute intracranial findings on this noninfused CT scan of the brain. Chronic maxillary sinus disease noted bilaterally. RADIATION DOSE DELIVERED: Total DLP DATA REPOSITORY: All CT scans at this facility are submitted to the National Radiology Data Registry (NRDR) Dose Index Registry (DIR) with the [employer] (ACR). RADIATION OPTIMIZATION: All CT scans at this facility use at least one of these dose optimization te chniques: automated exposure control; mA and/or kV adjustment per patient size (includes targeted exa ms where dose is matched to clinical indication); or iterative reconstruction.
[2023-05-28 20:27] LABS: BE (Venous) 1 mmol/L (-2-3); HCO3 (Venous) 25 mmol/L (23-28); O2 Sat (Venous) 83 %; TCO2 (Venous) 23 mmol/L (24-29); pCO2 (Venous) 40 mmHg (41-51); pH (Venous) 7.41 (7.31-7.41); pO2 (Venous) 45 mmHg
[2023-05-28 20:28] LABS: Abs Immature Grans 0.03 10^3/uL (0.0-0.06); Absolute Basophil Count 0.09 10^3/uL (0.0-0.2); Absolute Eosinophil Count 0.18 10^3/uL (0.0-0.7); Absolute Lymphocyte Count 2.04 10^3/uL (1.2-3.4); Absolute Monocyte Count 0.69 10^3/uL (0.1-0.8); Absolute Neutrophil Count 6.06 10^3/uL (1.2-6.7); HCT 40.4 % (40.0-50.0); HGB 13.9 g/dL (13.5-17.5); Immature Grans % 0.3; Lymphocytes % 22.4; MCHC 34.4 % (32.0-36.0); MCV 90 fL (80-95); MPV 9.7 fL (8.0-11.0); Monocytes % 7.6; Neutrophils % 66.7; Platelet Count 285 10^3/uL (130-400); RBC 4.48 10^6/uL (4.36-5.78); RDW 12.1 % (11.8-14.1); RDW-SD 40.1 fL; WBC 9.09 10^3/uL (4.4-10.8)
[2023-05-28] MEDS: ACETAMINOPHEN 1,000 MG/100 ML BTL 400 MG IVPB (20:30)
[2023-05-28] MEDS: Normal Saline 500 ML IV (20:31)
[2023-05-28] MEDS: Albuterol/Ipratropium 3 ML UPD VIAL UPD (20:31)
[2023-05-28 20:41] LABS: INR 1.1 (0.9-1.1); PTT Activated 23.7 sec (23.6-32.8); Prothrombin Time 10.8 sec (9.1-11.1)
[2023-05-28 20:42] LABS: ETHANOL BLOOD < 3.0 mg/dL (<10)
[2023-05-28] MEDS: Omnipaque 350 MG/ML 100 ML BTL IJ (20:47)
[2023-05-28] MEDS: Normal Saline - Diluent 50 ML VIAL IJ (20:48)
[2023-05-28 20:52] LABS: ALT 18 U/L (16-63); AST 12 U/L (15-37); Albumin 4.1 g/dL (3.4-5.0); Alkaline Phosphatase 53 U/L (46-116); Anion Gap 11.7 mmol/L (3-11); BUN 9 mg/dL (7-18); Bilirubin, Total 0.3 mg/dL (0.2-1.0); CO2 25.3 mmol/L (21.0-32.0); CREATININE 1.1 mg/dL (0.70-1.30); Chloride 105 mmol/L (98-107); Estimated GFR 89.78 (mL/min/1.73m2); Glucose 97 mg/dL (74-106); Potassium 3.5 mmol/L (3.5-5.1); Sodium 142 mmol/L (136-145); TSH (W/Ref FT4) 0.58 uIU/mL (0.36-3.74); Total Protein 7.2 g/dL (6.4-8.2); Troponin I < 50 ng/L (<or=60)
[2023-05-28 21:04] LABS: COVID-19 PCR Negative (Negative); Influenza A PCR Negative (Negative); Influenza B PCR Negative (Negative); RSV PCR Negative (Negative)
[2023-05-28 21:05] LABS: Source Nasopharynx
--- NOTE | 2023-05-28 21:16 | DI.VRAD_ITS ---
PROCEDURE INFORMATION: Exam: CTA Chest With Contrast Exam date and time: 05/28/2023 8:51 PM Age: 33 years old Clinical indication: Other: Unspecified; Patient HX: Crack cocaine use, chest pain, R/O dissection TECHNIQUE: Imaging protocol: Computed tomographic angiography of the chest with contrast. Exam focused on the arteries. 3D rendering (Not supervised by radiologist): MIP and/or 3D reconstructed images were created by the technologist. COMPARISON: CT CAROTID NECK CTA 02/20/2022 8:56 PM FINDINGS: Pulmonary arteries: No pulmonary emboli. Aorta: No aortic aneurysm. No aortic dissection. Lungs: No consolidation. No masses. Pleural spaces: Unremarkable. No pneumothorax. No pleural effusion. Heart: No cardiomegaly. No pericardial effusion. Lymph nodes: Unremarkable. No enlarged lymph nodes. Bones/joints: Unremarkable. No acute fracture. Soft tissues: Unremarkable. IMPRESSION: No acute findings. Dictated and Authenticated by: Guy Garay MD. Ordering:GLENNA Mcduffie MD
--- NOTE | 2023-05-28 21:16 | W.ED.GENAD ---
Discharge Plan Disposition Patient Disposition: Home Condition: Good Discharge Details Clinical Impression: Cocaine use, Reactive airway disease Primary Care Provider: Unknown,Unknown ED Provider: Froy Baez Home Meds and New Rx's Prescriptions: No Action fluoxetine 40 mg capsule 1 cap PO DAILY Patient Comments: 1 capsule by mouth once a day loratadine 10 mg tablet 10 mg PO DAILY Qty: 30 0RF budesonide-formoterol [Symbicort] 160-4.5 mcg/actuation HFA aerosol inhaler 2 puff inhalation BID Qty: 10.2 0RF Discharge Instructions Instructions: Reactive Airways Disease (ED) Additional Instructions: Please stop using cocaine. Please continue to use your home inhalers. If you notice any worsening of your symptoms, or any new symptoms such as vomiting, diarrhea, fever, chills, shortness of breath, chest pain, numbness, weakness, or fainting , please return immediately to the emergency department for reevaluation. Please follow up with your primary care provider as soon as possible for reassessment and reevaluation. As always, it was a pleasure participating in your medical care today. Medical Decision Making 33-year-old male with past medical history of illicit drug use, presents today for evaluation of chest pain. Patient is a regular crack cocaine user. Normally he states that he smokes it. He did snort it in the distant past. Today he smoked some crack, and [place] [employer] developed some chest pain. He was then brought to the emergency department by EMS for further assessment. Patient states he has been coughing and he is not overly clear as to when this began. He also admits to a mild headache which has been going on for quite a long while per the patient. He admits to a runny nose. He denies any neck pain or neck stiffness. He describes the headache as mild and in the front and sides of his head. He has no other complaints at this time. No other modifying factors. Physical exam demonstrates wheezes and slightly rhonchorous breath sounds. Pulses equal bilaterally. No nuchal rigidity. No neurologic deficits. Differential is broad but includes ACS secondary to cocaine, pneumonia, reactive airway disease from crack cocaine smoking, amongst other concerning etiologies. Dissection is also of concern. EKG shows no STEMI, minimal ST elevation, but appears to be repolarization, no tomb stoning. No evidence of STEMI. No depressions. Will evaluate for concerning etiologies, give a breathing treatment, monitor closely and reassess. 10:16 PM On reassessment patient is feeling much better, his chest pain has completely resolved after breathing treatment. Patient is feeling much better. EKG shows no STEMI or significant abnormalities. Initial troponin normal. COVID flu and RSV negative. CT scan of the head negative for acute process. Mild chronic sinusitis. No other acute process. CT of the chest negative for acute process. Symptoms appear inconsistent with cocaine induced ACS, and rather are instead consistent with reactive airway disease. Recommend avoidance of smoking crack cocaine. Still pending repeat Trope and EKG. If these are stable/unremarkable I do feel patient is appropriate for discharge home. 11:05 PM Repeat troponin has returned normal. Patient feels well. Chest pain remains gone. EKG stable. Symptoms consistent with reactive airway disease. Inconsistent with cocaine induced ACS. No clinical evidence of dissection on exam, or CT findings. Did offer a power and recovery superintendent connection for the patient, but he declines. He states that he will be following up with his mental health advocates on his own. Discussed red flags for which to return. I have extensively reviewed the treatment plan and discharge instructions with the patient. I have addressed all patient concerns at this time. The patient was made aware of what symptoms to monitor for that would warrant a return to the emergency department. Discussed the plan with the patient, they demonstrate verbal understanding and agreement with our assessment and plan at this time. The documentation in this chart was dictated using Vaughn Burton dictation software. Please excuse any dictation errors. FINDINGS: Brain: No intra or extra-axial bleed. Cortical ribbon and central salazar structures are preserved. No edema or mass effect. Cerebral ventricles: No hydrocephalus. Basal cisterns are patent. Paranasal sinuses: Mucosal thickening bilateral maxillary sinuses. Mastoid air cells: Mastoid air cells are clear. Bones/joints: TMJ osteoarthritis. Nasal septal deviation to the left. Soft tissues: Unremarkable. IMPRESSION: 1. No acute intracranial abnormality. 2. Chronic maxillary sinusitis. Thank you for allowing us to participate in the care of your patient. Dictated and Authenticated by: Jostin Erickson MD 05/28/2023 9:32 PM Eastern Time ([place] & [place]) FINDINGS: Pulmonary arteries: No pulmonary emboli. Aorta: No aortic aneurysm. No aortic dissection. Lungs: No consolidation. No masses. Pleural spaces: Unremarkable. No pneumothorax. No pleural effusion. Heart: No cardiomegaly. No pericardial effusion. Lymph nodes: Unremarkable. No enlarged lymph nodes. Bones/joints: Unremarkable. No acute fracture. Soft tissues: Unremarkable. IMPRESSION: No acute findings. Thank you for allowing us to participate in the care of your patient Dictated and Authenticated by: Guy Garay MD 05/28/2023 9:16 PM Eastern Time ([place] & [place]) HPI General Date/Time Provider Initiated Documentation: 05/28/23 20:15. HPI Narrative: 33-year-old male with past medical history of illicit drug use, presents today for evaluation of chest pain. Patient is a regular crack cocaine user. Normally he states that he smokes it. He did snort it in the distant past. Today he smoked some crack, and [place] [employer] [place] developed some chest pain. He was then brought to the emergency department by EMS for further assessment. Patient states he has been coughing and he is not overly clear as to when this began. He also admits to a mild headache which has been going on for quite a long while per the patient. He admits to a runny nose. He denies any neck pain or neck stiffness. He describes the headache as mild and in the front and sides of his head. He has no other complaints at this time. No other modifying factors. Related Data Home Medications Medication Instructions Recorded Confirmed budesonide-formoterol HFA 160 2 puff inhalation BID #10.2 grams 04/28/22 05/28/23 mcg-4.5 mcg/actuation aerosol inhaler (Symbicort) fluoxetine 40 mg capsule 1 cap PO DAILY 04/28/22 05/28/23 loratadine 10 mg tablet 10 mg PO DAILY #30 tabs 04/28/22 05/28/23 Previous Rx's Medication Instructions Recorded budesonide-formoterol HFA 160 2 puff inhalation BID #10.2 grams 04/28/22 mcg-4.5 mcg/actuation aerosol inhaler (Symbicort) loratadine 10 mg tablet 10 mg PO DAILY #30 tabs 04/28/22 Allergies Allergy/AdvReac Type Severity Reaction Status Date / Time amoxicillin AdvReac Mild Skin Rash Unverified 05/28/23 20:09 General Stated Complaint: Chest Pain RITO: 3 Review of Systems All systems reviewed & are unremarkable except as noted in HPI and below PFSH All Active Problems (Updated 05/28/23 @ 22:21 by Froy Baez DO) Reactive airway disease (Acute) Cocaine use (Acute) Substance abuse (Chronic) Depression (Chronic) Suicidal ideation (Acute) Social History Smoking/Tobacco Use Status: Current every day Tobacco Type: cigarettes Tobacco: How many years used: 16 Smoking risk assessment performed?: Yes Alcohol Intake: never Drug use: Daily Substance use type: marijuana and crack/cocaine Do you feel safe at home: Yes Do you feel safe in your relationship?: Yes Exam Narrative Exam Narrative: 1.Const: Well-nourished, Well-developed, appearing stated age 2.Eyes: PERRL, no conjunctival injection, and symmetrical lids. 3.ENT: Atraumatic external nose and ears. Moist MM. Neck: Symmetric, trachea midline, No thyromegaly. Patient demonstrates good movement of cervical neck. There is no nuchal rigidity, no nuchal tenderness. Patient is able to flex the neck without any difficulty or significant pain. Negative Kernig's and Brudzinski sign. 4.CVS: +S1/S2, No murmurs or gallops. Peripheral pulses 2+ and equal in all extremities. Brisk capillary refill in all extremities. 5.RESP: Rhonchorous breath sounds throughout. Scattered wheezes. 6.GI: Soft, Nontender/Nondistended, No hepatosplenomegaly. No guarding or rebound. 7.MSK: Normocephalic/Atraumatic, Extremities w/o deformity or ttp No cyanosis or clubbing, Normal movement of all extremities 8.Skin: Warm, Dry. No rashes or lesions. 9.Neuro: workers compensation claims specialist II-XII grossly intact. Sensation grossly intact, no focal neurologic deficits. 10.Psych: (AAO) x3. Appropriate mood and affect Course Vital Signs Vital signs: Vital Signs Temperature 37.2 C 05/28/23 20:05 Pulse 89 05/28/23 20:05 Respiratory Rate 20 05/28/23 20:05 Blood Pressure 125/85 05/28/23 20:05 Pulse Oximetry 99 05/28/23 20:05 Temperature 37.2 C 05/28/23 20:05 Pulse 84 05/28/23 20:31 Pulse 77 05/28/23 20:31 Respiratory Rate 22 05/28/23 20:31 Respiratory Effort Normal 05/28/23 20:11 Respiratory Depth Normal 05/28/23 20:11 Respiratory Pattern Normal 05/28/23 20:11 Blood Pressure 125/102 H 05/28/23 20:31 Blood Pressure Mean 106 05/28/23 20:31 Blood Pressure Position Sitting 05/28/23 20:05 Pulse Oximetry 97 05/28/23 20:31 Oxygen Delivery Method Room Air 05/28/23 20:05 Oxygen Flow Rate 0 05/28/23 20:05 Lab/Test Results Lab/Test Results: Laboratory Tests Range/Units 05/28/23 05/28/23 05/28/23 20:12 20:12 20:12 WBC (4.4-10.8) 10^3/uL 9.09 RBC (4.36-5.78) 10^6/uL 4.48 Hgb (13.5-17.5) g/dL 13.9 Hct (40.0-50.0) % 40.4 MCV (80-95) fL 90 MCH (27.0-33.0) pg 31.0 MCHC (32.0-36.0) % 34.4 RDW (11.8-14.1) % 12.1 Plt Count (130-400) 10^3/uL 285 MPV (8.0-11.0) fL 9.7 Immature Gran % 0.3 Neutrophils % 66.7 Lymphocytes % 22.4 Monocytes % 7.6 Eosinophils % 2.0 Basophils % 1.0 Nucleated RBC % (0.0-0.3) % 0.0 Absolute Neutrophils (1.2-6.7) 10^3/uL 6.06 Absolute Lymphocytes (1.2-3.4) 10^3/uL 2.04 Absolute Monocytes (0.1-0.8) 10^3/uL 0.69 Absolute Eosinophils (0.0-0.7) 10^3/uL 0.18 Absolute Basophils (0.0-0.2) 10^3/uL 0.09 PT Cancelled 10.8 INR Cancelled 1.1 APTT (23.6-32.8) sec 23.7 VBG pH (7.31-7.41) 7.41 VBG pCO2 (41-51) mmHg 40 L VBG pO2 mmHg 45 VBG HCO3 (23-28) mmol/L 25 VBG Total CO2 (24-29) mmol/L 23 L VBG O2 Saturation % 83 VBG Base Excess (-2-3) mmol/L 1 Sodium (136-145) mmol/L 142 Potassium (3.5-5.1) mmol/L 3.5 Chloride (98-107) mmol/L 105 Carbon Dioxide (21.0-32.0) mmol/L 25.3 Anion Gap (3-11) mmol/L 11.7 H BUN (7-18) mg/dL 9 Creatinine (0.70-1.30) mg/dL 1.1 Est GFR (CKD-EPI 2020) (mL/min/1.73m2) 89.78 Glucose (74-106) mg/dL 97 Calcium (8.5-10.1) mg/dL 9.0 Total Bilirubin (0.2-1.0) mg/dL 0.3 AST (15-37) U/L 12 L ALT (16-63) U/L 18 Alkaline Phosphatase (46-116) U/L 53 Troponin I (<or=60) ng/L < 50 Total Protein (6.4-8.2) g/dL 7.2 Albumin (3.4-5.0) g/dL 4.1 TSH (0.36-3.74) uIU/mL 0.58 Ethyl Alcohol (<10) mg/dL < 3.0 COVID-19 Source SARS-CoV-2 (PCR) (Negative) Influenza Type A (PCR) (Negative) Influenza Type B (PCR) (Negative) RSV (PCR) (Negative) Range/Units 05/28/23 20:20 WBC (4.4-10.8) 10^3/uL RBC (4.36-5.78) 10^6/uL Hgb (13.5-17.5) g/dL Hct (40.0-50.0) % MCV (80-95) fL MCH (27.0-33.0) pg MCHC (32.0-36.0) % RDW (11.8-14.1) % Plt Count (130-400) 10^3/uL MPV (8.0-11.0) fL Immature Gran % Neutrophils % Lymphocytes % Monocytes % Eosinophils % Basophils % Nucleated RBC % (0.0-0.3) % Absolute Neutrophils (1.2-6.7) 10^3/uL Absolute Lymphocytes (1.2-3.4) 10^3/uL Absolute Monocytes (0.1-0.8) 10^3/uL Absolute Eosinophils (0.0-0.7) 10^3/uL Absolute Basophils (0.0-0.2) 10^3/uL PT INR APTT (23.6-32.8) sec VBG pH (7.31-7.41) VBG pCO2 (41-51) mmHg VBG pO2 mmHg VBG HCO3 (23-28) mmol/L VBG Total CO2 (24-29) mmol/L VBG O2 Saturation % VBG Base Excess (-2-3) mmol/L Sodium (136-145) mmol/L Potassium (3.5-5.1) mmol/L Chloride (98-107) mmol/L Carbon Dioxide (21.0-32.0) mmol/L Anion Gap (3-11) mmol/L BUN (7-18) mg/dL Creatinine (0.70-1.30) mg/dL Est GFR (CKD-EPI 2020) (mL/min/1.73m2) Glucose (74-106) mg/dL Calcium (8.5-10.1) mg/dL Total Bilirubin (0.2-1.0) mg/dL AST (15-37) U/L ALT (16-63) U/L Alkaline Phosphatase (46-116) U/L Troponin I (<or=60) ng/L Total Protein (6.4-8.2) g/dL Albumin (3.4-5.0) g/dL TSH (0.36-3.74) uIU/mL Ethyl Alcohol (<10) mg/dL COVID-19 Source Nasopharynx SARS-CoV-2 (PCR) (Negative) Negative Influenza Type A (PCR) (Negative) Negative Influenza Type B (PCR) (Negative) Negative RSV (PCR) (Negative) Negative
--- NOTE | 2023-05-28 21:33 | DI.VRAD_ITS ---
PROCEDURE INFORMATION: Exam: CT Head Without Contrast Exam date and time: 05/28/2023 8:40 PM Age: 33 years old Clinical indication: Patient HX: Persistent rhinorrhea, crack snorting, headache TECHNIQUE: Imaging protocol: Computed tomography of the head without contrast. Total images: 1127 COMPARISON: CT CAROTID NECK CTA 02/20/2022 8:56 PM FINDINGS: Brain: No intra or extra-axial bleed. Cortical ribbon and central salazar structures are preserved. No edema or mass effect. Cerebral ventricles: No hydrocephalus. Basal cisterns are patent. Paranasal sinuses: Mucosal thickening bilateral maxillary sinuses. Mastoid air cells: Mastoid air cells are clear. Bones/joints: TMJ osteoarthritis. Nasal septal deviation to the left. Soft tissues: Unremarkable. IMPRESSION: 1. No acute intracranial abnormality. 2. Chronic maxillary sinusitis. Dictated and Authenticated by: Jostin Erickson MD. Ordering:GLENNA Mcduffie MD
--- NOTE | 2023-05-28 22:15 | RT.EKG_ITS ---
APPROVED REPORT Exam: Resting ECG Reason for Exam: chest pain Patient Location: E HR:81 bpm ECG Measurements Heart Rate 81 AXIS PA 158 P 36 QRSd 104 QRS 258 QT 423 T 38 QTc 484 Conclusion Sinus rhythm...normal P axis, V-rate 60- 99 Atrial premature complexes...SV complexes w/ short R-R intvls Inferior infarct, old...Q >35mS, II III aVF Borderline ST elevation, anterior leads...ST >0.15mV in V1-V4 Physician: no stemi, ST segments unchanged from prior ekg. No significant elevation or depression
[2023-05-28 22:46] LABS: Troponin I < 50 ng/L (<or=60)
--- NOTE | 2023-06-04 10:24 | NUR.NOTE ---
Accessed pt chart to cancel the POCUS order per Dr. Baez and Gloria Perez. Nursing Note:
== END 2023-05-28 23:15 | disposition home or self-care (01) ==
PROVIDERS: Emergency Provider Student in an Organized Health Care Education/Training Program
DX: R07.89 Other chest pain (principal); F14.90 Cocaine use, unspecified, uncomplicated; J45.909 Unspecified asthma, uncomplicated; R05.9 Cough, unspecified
CPT/HCPCS: 36415; 71275; 80053; 82805; 87637; 93005; 94640; 96361; 96365; 99285; 70450; 80320; 84443; 84484; 85025; 85610; 85730; 93010; 99283; J0131; J3490; J7620

== ENCOUNTER 2023-05-30 11:41 | Emergency (ER) | payer MEDICAID, SELFPAY ==
[2023-05-30 12:02] VITALS: BP 137/117; PULSE 119; TEMP 37.1; O2SAT 98
--- NOTE | 2023-05-30 12:18 | ED.GENADUL_ITS ---
Discharge Plan Discharge Details Chief Complaint: PsychEval Primary Care Provider: Unknown,Unknown ED Provider: Artis Emery Home Meds and New Rx's Prescriptions: No Action fluoxetine 40 mg capsule 1 cap PO DAILY Patient Comments: 1 capsule by mouth once a day loratadine 10 mg tablet 10 mg PO DAILY Qty: 30 0RF budesonide-formoterol [Symbicort] 160-4.5 mcg/actuation HFA aerosol inhaler 2 puff inhalation BID Qty: 10.2 0RF Medical Decision Making 1223 --33-year-old male with history of cocaine abuse, suicidal ideation in the past, sent by mental [facility] for depression and delusional thought, arrives with 2 while enforcement officers in restraints. Patient attempted to elope with transition out of restraints. Patient has ongoing delusional thought. Patient's behavior is labile. Plan to transition from all enforcement restraint to 4 point restraint with antipsychotic and anxiolytic. Patient is agreeable to receiving medications at this time. 1620 --patient reassessed multiple times. Patient tolerating restraints. Initial labs reviewed and leukocytosis noted. Anion gap acidosis noted. Hypoglycemia noted. Will establish IV and provide IV fluid and dextrose. UDS pending. Will provide tetanus prohylaxis. Lab Data Lab results reviewed: Yes I reviewed the patient's lab results. Labs: Laboratory Tests Range/Units 05/30/23 13:35 WBC (4.4-10.8) 10^3/uL 16.31 H RBC (4.36-5.78) 10^6/uL 4.41 Hgb (13.5-17.5) g/dL 13.5 Hct (40.0-50.0) % 40.1 MCV (80-95) fL 91 MCH (27.0-33.0) pg 30.6 MCHC (32.0-36.0) % 33.7 RDW (11.8-14.1) % 12.3 Plt Count (130-400) 10^3/uL 324 MPV (8.0-11.0) fL 9.6 Immature Gran % 0.6 Neutrophils % 71.6 Lymphocytes % 18.0 Monocytes % 8.7 Eosinophils % 0.4 Basophils % 0.7 Nucleated RBC % (0.0-0.3) % 0.0 Absolute Neutrophils (1.2-6.7) 10^3/uL 11.68 H Absolute Lymphocytes (1.2-3.4) 10^3/uL 2.94 Absolute Monocytes (0.1-0.8) 10^3/uL 1.42 H Absolute Eosinophils (0.0-0.7) 10^3/uL 0.07 Absolute Basophils (0.0-0.2) 10^3/uL 0.11 Sodium (136-145) mmol/L 137 Potassium (3.5-5.1) mmol/L 4.1 Chloride (98-107) mmol/L 100 Carbon Dioxide (21.0-32.0) mmol/L 19.6 L Anion Gap (3-11) mmol/L 17.4 H BUN (7-18) mg/dL 25 H Creatinine (0.70-1.30) mg/dL 1.4 H Est GFR (CKD-EPI 2020) (mL/min/1.73m2) 67.22 Glucose (74-106) mg/dL 55 L Calcium (8.5-10.1) mg/dL 9.2 Total Bilirubin (0.2-1.0) mg/dL 0.6 AST (15-37) U/L 54 H ALT (16-63) U/L 25 Alkaline Phosphatase (46-116) U/L 62 Total Protein (6.4-8.2) g/dL 7.7 Albumin (3.4-5.0) g/dL 4.5 TSH (0.36-3.74) uIU/mL 1.66 Salicylates (<2.8) mg/dL 6.3 Acetaminophen (10-30) ug/mL < 2 Ethyl Alcohol (<10) mg/dL < 3.0 HPI General Mode of arrival: EMS (2 law enforcement officers) . Date/Time Provider Initiated Documentation: 05/30/23 11:43 . Limitations to Documentation: no limitations . Information obtained by: patient . HPI Narrative: 33-year-old male arrives with law enforcement in restraints with concern for depression and delusional thought. Patient was seen by mental health crisis screener today and ED evaluation was recommended. Patient is not here voluntarily and attempted to elope when law enforcement removed restraint. Patient does note he has recently used crack cocaine but denies use today. Patient denies recent head trauma. Patient does note he has thoughts of hurting anyone who hurts his and he currently is hearing his call out for help. Related Data Home Medications Medication Instructions Recorded Confirmed budesonide-formoterol HFA 160 2 puff inhalation BID #10.2 grams 04/28/22 05/28/23 mcg-4.5 mcg/actuation aerosol inhaler (Symbicort) fluoxetine 40 mg capsule 1 cap PO DAILY 04/28/22 05/28/23 loratadine 10 mg tablet 10 mg PO DAILY #30 tabs 04/28/22 05/28/23 Previous Rx's Medication Instructions Recorded budesonide-formoterol HFA 160 2 puff inhalation BID #10.2 grams 04/28/22 mcg-4.5 mcg/actuation aerosol inhaler (Symbicort) loratadine 10 mg tablet 10 mg PO DAILY #30 tabs 04/28/22 Allergies Allergy/AdvReac Type Severity Reaction Status Date / Time amoxicillin AdvReac Mild Skin Rash Unverified 05/28/23 20:09 General Stated Complaint: PsychEval RITO: 2 PFSH All Active Problems Reactive airway disease (Acute) Cocaine use (Acute) Substance abuse (Chronic) Depression (Chronic) Suicidal ideation (Acute) Social History Smoking/Tobacco Use Status: Current every day Tobacco Type: cigarettes Tobacco: How many years used: 16 Smoking risk assessment performed?: Yes Alcohol Intake: never Drug use: Daily Substance use type: marijuana and crack/cocaine Do you feel safe at home: Yes Do you feel safe in your relationship?: Yes Exam Const General: anxious and disheveled Nutritional Appearance: thin Orientation: alert, awake and oriented to person Limitations: altered mental status HENMT Mouth: moist mucous membranes Eyes Conjunctivae: normal conjunctivae Sclera: normal sclerae Neck Neck: trachea midline Resp Auscultation: clear to auscultation bilaterally, no rales, no rhonchi and no wheezes Cardio Rate: regular rate and not tachycardic Rhythm: regular rhythm GI Palpation: soft, not firm, no guarding, no masses, not rigid and nontender Skin General skin exam: no rashes or lesions noted Neuro General: patient alert, patient awake and tone normal Cognition: abnormal cognition Motor: muscle tone normal throughout Extrem General: no edema Other: Superficial abrasions bilateral knees, ecchymosis medial left knee Psych Mood: anxious mood Affect: labile affect Thought Content: hallucinations Insight: fair Judgment: poor Course Vital Signs Vital signs: Vital Signs Temperature 37.1 C 05/30/23 12:02 Pulse 119 H 05/30/23 12:02 Blood Pressure 137/117 H 05/30/23 12:02 Pulse Oximetry 98 05/30/23 12:02 Temperature 37.1 C 05/30/23 12:02 Temperature Source Temporal Artery Scan 05/30/23 12:02 Pulse 119 H 05/30/23 12:02 Blood Pressure 137/117 H 05/30/23 12:02 Blood Pressure Position Sitting 05/30/23 12:02 Pulse Oximetry 98 05/30/23 12:02 Oxygen Delivery Method Room Air 05/30/23 12:02 Oxygen Flow Rate 0 05/30/23 12:02 Restraint Face to Face Time of Face to Face Face to Face: Time of Face to Face: 12:45 Patient's Immediate Situation Requiring Restraints/Seclusion: Harm to Patient Patient Response to Restraints: Tolerating without Problems Patient's Medical & Behavioral Condition: Delusional thought process and depression. Labile behavior. Need for Continuation of Restraints Has Been Assessed: Restraints Continued 2nd Face to Face: Time of Face to Face: 15:20 Patient's Immediate Situation Requiring Restraints/Seclusion: Harm to Patient Patient Response to Restraints: Tolerating without Problems Patient's Medical & Behavioral Condition: Patient reassessed multiple times. Patient remains sedated. Tolerating restraints. Patient is not able to respond to questioning at this time and unable to ensure safety. Plan to continue restraints given demonstrated lability. Need for Continuation of Restraints Has Been Assessed: Restraints Continued
[2023-05-30] MEDS: diphenhydrAMINE 50 MG/ML VIAL IM (12:32)
[2023-05-30] MEDS: Droperidol 5 MG/2 ML VIAL 10 MG IM (12:32)
[2023-05-30] MEDS: Midazolam 2 MG/2 ML VIAL 4 MG IM (12:33)
--- NOTE | 2023-05-30 13:36 | PDOC.MHCN ---
Date of service: 05/30/23 Time of Service: 10:50 PHQ-9 Over the last 2 weeks, how often have you been bothered by any of the following problems? 1. Little interest or pleasure in doing things: more than half the days 2. Feeling down, depressed, or hopeless: more than half the days 3. Trouble falling or staying asleep, or sleeping too much: more than half the days 4. Feeling tired or having little energy: more than half the days 5. Poor appetite or overeating: more than half the days 6. Feeling bad about yourself - or that you are a failure or have let yourself and your family down: more than half the days 7. Trouble concentrating on things, such as reading the newspaper or watching television: several days 8. Moving or speaking so slowly that other people could have noticed? - Or the opposite - being so fidgety or restless that you have been moving around a lot more than usual: more than half the days 9. Thoughts that you would be better off or of hurting yourself in some way: more than half the days Total score: 17 Source: Developed by Drs. Jermain Carrera, Karlene Boykin, Liam Terry and colleagues, with an educational jerica from [employer]. Suicide Severity Rate CSSRS Have you wished you were or wished you could go to sleep and not wake up?: Yes Have you actually had any thoughts of killing yourself?: Yes CSSRS2 Have you been thinking about how you might do this?: No Have you had these thoughts and had some intention of acting on them?: No Have you started to work out or worked out the details of how to kill yourself? Do you intend to carry out this plan?: No CSSRS3 Have you ever done anything, started to do anything or prepared to do anything to end your life?: Yes CSSRS4 Was this within the past three months?: No Screening Score Total Score: 6 Screening: Positive Mental Health Emergency Note Release [facility] release signed:: Yes Reason for Visit In the last 2 weeks has the pt presented for ES prior to today?: No Client Information Well Housed: No,status: Homeless Non Suicidal Self Injury Current: Yes, cutting and burning History: yes, cutting and burning Safety Risk/Harm to Self or Others Current Ideation to Harm Self or Others: No Risk: Does risk to harm exist?: yes. Access to means: Yes. Types of Means: Other (extension cord ). Details: used in past attempt . Asssessment/Mental Status Appearance: Disheveled, Poor hygiene and Other (covered in his blood) Attitude: Cooperative Behavior: Hyperactivity and Repetitive movements Speech: Pressured, Incoherent and Slurred Affect: Expansive Mood: Sad, Stressed, Depressed and Anxious Thought process: Racing and Poverty of content Hallucinations: yes, Auditory Delusions: yes, Grandiose and Bizarre Attention: Wandering and Inattention Perception: Not impaired Orientation: Disoriented in Time Memory: Impaired in: (drug use ) Recent Insight: Fair Judgement: Fair Neurovegetative Symptoms Sleep: Decrease Appetitie: Decrease Interests: Decrease Energy: Decrease Libido: Not applicable Substance Use: Drug Issues: Dependence Do you use nicotine?: Yes Have you used substances in the last 7 days?: yes, Cigarettes, THC, crack cocaine Additional Issues: Assaultive/Threatening Behavior: No Medical Concerns: No Client engaged in active self harm w/weapon: No Threatening to run away: No Child reported abuse/neglect: No Voluntarily presenting for services: No Domestic violence is a concern: No Extreme Psychosis or extreme behavior is present: Yes Plan/Disposition Recommended Disposition: Hospitalization No. Plan: Client is Serg Lu, 33-year-old male who was screened and assessed at [facility] after being brought into police custody after reports of him being outside of a woman?s home multiple times and refusing to leave. Client appeared to this commercial real estate underwriter as disheveled with poor hygiene and was noted to be covered in his own blood due to cuts on his knees due to flipping over a handicap rail and crashing into boxes due to hearing voices. Police at the [facility] reported that the client broke into a car by smashing a window after thinking his fianc? was trapped in the car. Client was also reported hearing a woman call for him when brought into custody two nights prior. Client asked the police officers who was with him to shine their flashlight around to look for the women, officers did not find a woman at this time. ?Client was noted to being fidgety due to his repetitive hand movement, and his inability to stay in one place during the assessment. Client reported no thought of SI or HI at the beginning of the assessment but did answer yes to the first two questions to the CSSRS and reported a past attempt of hanging himself with an extension cord. The client was heard muttering under his breath ?that?s what I?m going to kill myself with, an extension cord?. Client was unable to remember when he was hospitalized for his mental health but reported to this commercial real estate underwriter that it was after his pervious suicide attempt. The client switched from a month to a year and a half in regard to the timeline of events that happened. Client reported only one past attempt at this time. Client reported NSSI behaviors by cutting and burning himself. Client reported that he last burned himself on his left wrist two days ago before entering police custody. ? Client reported that his appetite, sleep, interests, and energy were decreased. Client was observed to repetitively looking at the door, client reported that he heard a woman screaming for help. Client reported that he was hearing voices and was observed talking to himself on multiple occasions. Client was observed having a change in volume when speaking to this commercial real estate underwriter, getting loud, then very soft in the same breath. Client appeared to be paranoid by this commercial real estate underwriter due to this interaction and him saying that he was in trouble on different occasions during the assessment. Client scored a 17/27 on the PHQ-9, answered yes to all the PC-PTSD-5 questions and yes to all the cage aid questions. Client reported that usage of tobacco products in the form of cigarettes, THC products, and crack-cocaine. Per client?s report he is no longer drinking alcohol but was unable to remember when he stopped, reporting ?a while ago?. Client reported that he was unable to return to his current place of residence, so client is currently homeless. Client does not currently have a job but does have his high school degree. Client reported that he currently has a fianc? named Oralia, but when client was asked about any friends client reports ?I?d like to think so but I don?t trust anybody?. 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 Client was observed during the assessment as being unsure when he was asked questions, at times saying ?no, not really? or changing his answers from yes to no ?and back to yes on multiple occasions, in addition to repeating himself frequently. Client was also observed of having a hard time remembering dates when asked. Client reported not taking any medications at this time and has a family history of mental illness, substance abuse, legal, and suicides. Once the assessment finished, client was recommended to go to the hospital to seek treatment for his knees in addition to seek treatment with his mental health due to his hallucinations, delusions, and underlying depression. Client agreed and was driven to [facility] by police and will remain there until placement is found at an inpatient facility. Referrals will be sent out to [facility], [facility]. Reports/communication Outcome discussed with: Other (Police who brought client into ED)
[2023-05-30 13:43] LABS: Absolute Basophil Count 0.11 10^3/uL (0.0-0.2); Absolute Eosinophil Count 0.07 10^3/uL (0.0-0.7); Absolute Monocyte Count 1.42 10^3/uL (0.1-0.8); Absolute Neutrophil Count 11.68 10^3/uL (1.2-6.7); Basophils % 0.7; Eosinophils % 0.4; HCT 40.1 % (40.0-50.0); HGB 13.5 g/dL (13.5-17.5); Immature Grans % 0.6; MCH 30.6 pg (27.0-33.0); MCHC 33.7 % (32.0-36.0); MCV 91 fL (80-95); MPV 9.6 fL (8.0-11.0); Monocytes % 8.7; Neutrophils % 71.6; Platelet Count 324 10^3/uL (130-400); RBC 4.41 10^6/uL (4.36-5.78); RDW 12.3 % (11.8-14.1); RDW-SD 40.9 fL; WBC 16.31 10^3/uL (4.4-10.8)
[2023-05-30 13:44] LABS: Absolute Lymphocyte Count 2.94 10^3/uL (1.2-3.4)
[2023-05-30 14:07] LABS: Salicylate 6.3 mg/dL (<2.8)
[2023-05-30 14:08] LABS: ALT 25 U/L (16-63); AST 54 U/L (15-37); Albumin 4.5 g/dL (3.4-5.0); Alkaline Phosphatase 62 U/L (46-116); Anion Gap 17.4 mmol/L (3-11); BUN 25 mg/dL (7-18); Bilirubin, Total 0.6 mg/dL (0.2-1.0); CO2 19.6 mmol/L (21.0-32.0); CREATININE 1.4 mg/dL (0.70-1.30); Calcium 9.2 mg/dL (8.5-10.1); Chloride 100 mmol/L (98-107); ETHANOL BLOOD < 3.0 mg/dL (<10); Estimated GFR 67.22 (mL/min/1.73m2); Glucose 55 mg/dL (74-106); Potassium 4.1 mmol/L (3.5-5.1); Sodium 137 mmol/L (136-145); TSH (W/Ref FT4) 1.66 uIU/mL (0.36-3.74); Total Protein 7.7 g/dL (6.4-8.2)
[2023-05-30 14:09] LABS: Acetaminophen < 2 ug/mL (10-30)
--- NOTE | 2023-05-30 17:12 | W.EDPROG ---
Date of service: 05/30/23 Time of Service: 17:00 Medical Decision Making This patient was signed out to me. Please see previous notes for H&P and initial eval. In brief, 33yo M presenting with psychosis and SI in the setting of recent cocaine use. Restrained shortly after arrival, remains in restraints at this time s/p medication with droperidol, versed, benadyrl. Labs show mild metabolic acidosis and hypoglycemia, getting dextrose. Will need mental health eval once awake and able to converse. On reassessment patient more alert, restraints dced. Repeat BMP improved with resolution of acidosis. Medically cleared, evaluated by mental health who recommended voluntary inpatient treatment. Signed out to oncoming physician, patient pending voluntary psych placement. Lab Data Lab results reviewed: Yes I reviewed the patient's lab results. Labs: Laboratory Tests Range/Units 05/30/23 05/30/23 13:35 18:55 WBC (4.4-10.8) 10^3/uL 16.31 H RBC (4.36-5.78) 10^6/uL 4.41 Hgb (13.5-17.5) g/dL 13.5 Hct (40.0-50.0) % 40.1 MCV (80-95) fL 91 MCH (27.0-33.0) pg 30.6 MCHC (32.0-36.0) % 33.7 RDW (11.8-14.1) % 12.3 Plt Count (130-400) 10^3/uL 324 MPV (8.0-11.0) fL 9.6 Immature Gran % 0.6 Neutrophils % 71.6 Lymphocytes % 18.0 Monocytes % 8.7 Eosinophils % 0.4 Basophils % 0.7 Nucleated RBC % (0.0-0.3) % 0.0 Absolute Neutrophils (1.2-6.7) 10^3/uL 11.68 H Absolute Lymphocytes (1.2-3.4) 10^3/uL 2.94 Absolute Monocytes (0.1-0.8) 10^3/uL 1.42 H Absolute Eosinophils (0.0-0.7) 10^3/uL 0.07 Absolute Basophils (0.0-0.2) 10^3/uL 0.11 Sodium (136-145) mmol/L 137 137 Potassium (3.5-5.1) mmol/L 4.1 3.4 L Chloride (98-107) mmol/L 100 102 Carbon Dioxide (21.0-32.0) mmol/L 19.6 L 23.5 Anion Gap (3-11) mmol/L 17.4 H 11.5 H BUN (7-18) mg/dL 25 H 20 H Creatinine (0.70-1.30) mg/dL 1.4 H 1.3 Est GFR (CKD-EPI 2020) (mL/min/1.73m2) 67.22 73.47 Glucose (74-106) mg/dL 55 L 128 H Calcium (8.5-10.1) mg/dL 9.2 8.4 L Total Bilirubin (0.2-1.0) mg/dL 0.6 AST (15-37) U/L 54 H ALT (16-63) U/L 25 Alkaline Phosphatase (46-116) U/L 62 Total Protein (6.4-8.2) g/dL 7.7 Albumin (3.4-5.0) g/dL 4.5 TSH (0.36-3.74) uIU/mL 1.66 Salicylates (<2.8) mg/dL 6.3 Acetaminophen (10-30) ug/mL < 2 Ethyl Alcohol (<10) mg/dL < 3.0 Sign Out Sign Out Data: Sign Out Comment: Follow-up UDS. Reassessed patient and consult mental health for crisis evaluation. Last updated by Artis Emery MD at 05/30/23 16:56 Discharge Plan Discharge Details Chief Complaint: PsychEval Primary Care Provider: Unknown,Unknown ED Provider: Montse Ramirez Home Meds and New Rx's Prescriptions: No Action fluoxetine 40 mg capsule 1 cap PO DAILY Patient Comments: 1 capsule by mouth once a day loratadine 10 mg tablet 10 mg PO DAILY Qty: 30 0RF budesonide-formoterol [Symbicort] 160-4.5 mcg/actuation HFA aerosol inhaler 2 puff inhalation BID Qty: 10.2 0RF Restraint Face to Face Time of Face to Face Face to Face: Time of Face to Face: 17:00 Patient's Immediate Situation Requiring Restraints/Seclusion: Harm to Patient Patient Response to Restraints: Tolerating without Problems Patient's Medical & Behavioral Condition: Patient appears to be sleeping, under constant observation and on monitoring tech. Tolerating restrains well at this time, however unable to assess mental status and safety for removal of restraints. Will continue to monitor and reassess, plan to remove restraints as soon as patient able to demonstrate safety. Need for Continuation of Restraints Has Been Assessed: Restraints Continued 2nd Face to Face: Time of Face to Face: 17:29 Patient Response to Restraints: Tolerating without Problems Patient's Medical & Behavioral Condition: Patient awake, requesting to use urinal. Calm, states he feels safe, denies any intent to harm anyone. No psychomotor agitation. Restraints dced. Need for Continuation of Restraints Has Been Assessed: Restraints Terminated
[2023-05-30] MEDS: Lactated Ringers 1,000 ML 1000 ML IV (17:20)
[2023-05-30] MEDS: Dextrose 50%-Water 25 GM/50 ML SYR IVP (17:23)
--- NOTE | 2023-05-30 17:23 | NUR.NOTE ---
Nursing Note:Spoke with mother. Mother stated patient can not come to her house should he be discharged.
[2023-05-30] MEDS: Ketorolac 15 MG/ML VIAL IVP (18:15)
[2023-05-30] MEDS: Acetaminophen 325 MG TAB 650 MG PO (18:15)
--- NOTE | 2023-05-30 18:49 | NUR.NOTE ---
Nursing Note: this RN cleaned and dressed patient's right knee abrasion
[2023-05-30 19:15] LABS: Anion Gap 11.5 mmol/L (3-11); BUN 20 mg/dL (7-18); CO2 23.5 mmol/L (21.0-32.0); CREATININE 1.3 mg/dL (0.70-1.30); Calcium 8.4 mg/dL (8.5-10.1); Chloride 102 mmol/L (98-107); Estimated GFR 73.47 (mL/min/1.73m2); Glucose 128 mg/dL (74-106); Potassium 3.4 mmol/L (3.5-5.1); Sodium 137 mmol/L (136-145)
[2023-05-30] MEDS: LORazepam 1 MG TAB PO (20:50)
[2023-05-30 21:01] LABS: *AMPHETAMINES SCREEN URINE Negative (Negative); *BARBITURATES SCREEN URINE Negative (Negative); *BENZODIAZEPINES SCREEN URINE Positive (Negative); Cannabinoids THC Negative (Negative); Cocaine Screen,Urine Positive (Negative); METHADONE URINE SCREEN Negative (Negative); OPIATES URINE SCREEN Negative (Negative)
[2023-05-30 21:03] LABS: Tricyclic Antidepressants Negative (Negative)
--- NOTE | 2023-05-30 21:16 | NUR.NOTE ---
Pt is awake, he became anxious and mildly agitated, he was escorted to bathroom with [employer], Security, and Wastewater Technician, redirection was provided by [employer] and security, pt given a sandwich and water as requested by the pt, pt also given Ativan by AB MILLAN, pt is now laying in bed and appears calm and relaxed, CARLOS ENRIQUE
[2023-05-31 15:22] VITALS: BP 119/75; PULSE 88; RESP 20; TEMP 37.2; O2SAT 95
--- NOTE | 2023-05-31 15:28 | ED.PROG_ITS ---
Date of service: 05/31/23 Time of Service: 15:28 Medical Decision Making Patient evaluated by [facility] human services. Cleared for discharge with a safety plan. Patient calm cooperative no acute distress. Hemodynamically stable. Sign Out Sign Out Data: Sign Out Comment: Follow-up UDS. Reassessed patient and consult mental health for crisis evaluation. Last updated by Artis Emery MD at 05/30/23 16:56 Sign Out Comment: SI, voluntary, medically cleared and pending placement. Has been sleeping throughout my shift. No issues. Last updated by Daly Segovia MD at 05/31/23 05:54 Discharge Plan Disposition Patient Disposition: Home Condition: Improving Discharge Details Chief Complaint: PsychEval Clinical Impression: Hallucinations Primary Care Provider: Unknown,Unknown ED Provider: Duncan Vanessa Home Meds and New Rx's Prescriptions: No Action fluoxetine 40 mg capsule 1 cap PO DAILY Patient Comments: 1 capsule by mouth once a day loratadine 10 mg tablet 10 mg PO DAILY Qty: 30 0RF budesonide-formoterol [Symbicort] 160-4.5 mcg/actuation HFA aerosol inhaler 2 puff inhalation BID Qty: 10.2 0RF Discharge Instructions Instructions: Psychotic Disorder (ED) Additional Instructions: Please follow safety plan. Return to emergency department for worsening symptoms.
--- NOTE | 2023-05-31 16:22 | MHPN_ITS ---
Date of service: 05/31/23 Time of Service: 17:37 Mental Health Emergency Note Release [facility] release signed:: Yes Reason for Visit Client was brought to the ED on 05.30.23 via for medical clearance and voluntary placement psychiatrically. He presented as paranoid and delusional. He was assessed face to face at bedside. In the last 2 weeks has the pt presented for prior to today?: Unknown Impression Client is a 33-year-old male who was screened and assessed at [facility] initially on 05.30.23, after being brought into police custody due to reports of him being outside of a woman?s home multiple times and refusing to leave. The client is screened face to face today at [facility] after learning that he would not accept placement on the LGBTQ unit at . This posed him to not have beds available to him today. Also attending is per support Beryl Alvares and new to [facility] AO therapist, ____. The client presented lying in bed alert and oriented. He denied Si and HI. He denied that he ever was despite clinician Madhav's documentation on . He reported he want to go home, well not that home. Do you have a place for me to go? This clinician informed him that unfortunately [facility] does not do housing. He was given resources of [facility] and [facility] to access housing. He was cooperative, engaged, and made good eye contact. He does present as having a pretty significant cough that interrupted the assessment process today but did not prevent involvement. He asked great questions like how does one see and/or hear things and others do not? How do I deal with that? this clinician educated him that it could be either; you were high, detoxing or self medicating a MH condition. He was able to hear this and will process and consider this. The client is showing good insight and judgment and at this time does not meet criteria for an involuntary hold and is not willing to accept treatment despite potential need and beneficiary of said placement. Resources [employer] reviewed and given:: [id number] and [facility] Plan/Disposition Recommended Disposition: Therapy. Plan: The client engaged in a safety plan. He will do daily check in calls until Tuesday. He will outreach to or [facility] regarding housing. He is accepting a referral for therapy. Person reported agreement to plan: Yes Reports/communication Outcome discussed with: ED/Personnel
== END 2023-05-31 15:53 | disposition home or self-care (01) ==
PROVIDERS: Student in an Organized Health Care Education/Training Program; Emergency Provider Emergency Medicine
DX: R45.851 Suicidal ideations (principal); F32.A Depression, unspecified; R44.1 Visual hallucinations; R44.2 Other hallucinations; E87.20 Acidosis, unspecified; E16.2 Hypoglycemia, unspecified; Z78.1 Physical restraint status; Z23 Encounter for immunization; F17.210 Nicotine dependence, cigarettes, uncomplicated
CPT/HCPCS: 00123; 36415; 80048; 80053; 80307; 82962; 90471; 96127; 96372; 99283; 80320; 80329; 84443; 85025; J1200; J1790; J1885; J2250

== ENCOUNTER 2023-07-15 11:31 | Emergency (ER) | payer MEDICAID, SELFPAY ==
[2023-07-15 11:34] VITALS: BP 111/73; PULSE 64; RESP 18; TEMP 36.8; O2SAT 100
[2023-07-15 11:47] VITALS: BP 121/81; PULSE 68; RESP 16; O2SAT 98
--- NOTE | 2023-07-15 12:05 | ED.GENADUL_ITS ---
HPI General Mode of arrival: ambulatory . Date/Time Provider Initiated Documentation: 07/15/23 11:51 . Limitations to Documentation: no limitations . Information obtained by: patient . HPI Narrative: 33-year-old male here with chief complaint of right hand infection. Patient notes he has a red swollen painful area right hand and now tracking of redness up his arm. He states inflammation started few days ago and has progressed. 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 Related Data Home Medications Medication Instructions Recorded Confirmed cephalexin 500 mg tablet 500 mg PO QID #27 tabs 07/15/23 sulfamethoxazole 800 1 tab PO BID #13 tabs 07/15/23 mg-trimethoprim 160 mg tablet (Bactrim DS) Previous Rx's Medication Instructions Recorded cephalexin 500 mg tablet 500 mg PO QID #27 tabs 07/15/23 sulfamethoxazole 800 1 tab PO BID #13 tabs 07/15/23 mg-trimethoprim 160 mg tablet (Bactrim DS) Allergies Allergy/AdvReac Type Severity Reaction Status Date / Time amoxicillin AdvReac Mild Skin Rash Unverified 07/15/23 12:06 General Stated Complaint: Cellulitis RITO: 3 Review of Systems Integumentary/Breasts Skin/Breast: Reports as per HPI Exam Const General: cooperative and no acute distress Cardio Rate: regular rate and not tachycardic Rhythm: regular rhythm Skin Rashes: rashes noted (right hand shallow ulcer with linear erythema tracking up forearm ) Other: no induration or fluctuance Extrem General: no edema Other: full ROM right fingers Course Vital Signs Vital signs: Vital Signs Temperature 36.8 C 07/15/23 11:34 Pulse 64 07/15/23 11:34 Respiratory Rate 18 07/15/23 11:34 Blood Pressure 111/73 07/15/23 11:34 Pulse Oximetry 100 07/15/23 11:34 Temperature 36.8 C 07/15/23 11:34 Pulse 68 07/15/23 11:47 Respiratory Rate 16 07/15/23 11:47 Respiratory Effort Normal 07/15/23 11:47 Blood Pressure 121/81 07/15/23 11:47 Blood Pressure Position Sitting 07/15/23 11:47 Pulse Oximetry 98 07/15/23 11:47 Oxygen Delivery Method Room Air 07/15/23 11:47 Pain Level 3 07/15/23 11:47 Medical Decision Making 33-year-old male here with right hand cellulitis, erythema tracking proximally up his arm. No signs of systemic infection. Plan to treat broadly with Bactrim and Keflex. I did discuss smoking cessation with the patient. Usual customary discharge instructions were reviewed. Quality:SDOH Health Related Social Needs: No Data to Display PFSH All Active Problems Cellulitis of right hand (Acute) Substance abuse (Chronic) Depression (Chronic) Suicidal ideation (Acute) Social History Smoking/Tobacco Use Status: Current every day Tobacco Type: cigarettes Tobacco: How many years used: 16 Smoking risk assessment performed?: Yes Alcohol Intake: never Drug use: Daily Substance use type: marijuana and crack/cocaine Housing: other Do you feel safe at home: Yes Do you feel safe in your relationship?: Yes Discharge Plan Disposition Patient Disposition: Home Condition: Serious Discharge Details Clinical Impression: Cellulitis of right hand Primary Care Provider: Unknown,Unknown ED Provider: Artis Emery Home Meds and New Rx's Prescriptions: New cephalexin 500 mg tablet 500 mg PO QID Qty: 27 0RF sulfamethoxazole-trimethoprim [Bactrim DS] 800-160 mg tablet 1 tab PO BID Qty: 13 0RF Discontinued fluoxetine 40 mg capsule 1 cap PO DAILY Patient Comments: 1 capsule by mouth once a day loratadine 10 mg tablet 10 mg PO DAILY Qty: 30 0RF Discharge Instructions Instructions: Cellulitis (ED) Additional Instructions: Please take full course of antibiotic as prescribed. Please contact your primary care physician to arrange follow-up. Return to the ER immediately for any worsening or new concerning symptoms. Stand Alone Forms: Work Release
[2023-07-15] MEDS: Cephalexin 500 MG CAP PO (12:07)
[2023-07-15] MEDS: Sulfameth/Trimeth DS TAB 1 TAB PO (12:11)
[2023-07-15 12:16] VITALS: PULSE 71; O2SAT 100
== END 2023-07-15 12:24 | disposition home or self-care (01) ==
PROVIDERS: Emergency Provider Student in an Organized Health Care Education/Training Program
DX: L03.113 Cellulitis of right upper limb (principal); F17.210 Nicotine dependence, cigarettes, uncomplicated
CPT/HCPCS: 99283

== ENCOUNTER 2023-07-26 08:32 | Emergency (ER) | payer MEDICAID, SELFPAY ==
[2023-07-26 08:35] VITALS: BP 119/84; PULSE 83; RESP 16; TEMP 36.6; O2SAT 100
--- NOTE | 2023-07-26 08:44 | W.ED.GENAD ---
HPI General Date/Time Provider Initiated Documentation: 07/26/23 08:42. 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 Previous imaging including CT imaging of the spine which was negative. Patient states that 2 days ago he noticed some achiness in his left lower back, this is continued. It has felt like his previous strains. Patient denies any saddle anesthesia, numbness or tingling in the groin, change in sensation when wiping. Patient denies any change in sensation during sexual intercourse, difficulty achieving or maintaining an erection or ejaculation, bowel or bladder incontinence, leakage, or retention. Patient denies any weakness in the lower extremities, atypical falls or imbalance. Pain is made worse with lifting and bending. Made worse by lying flat, improved when standing. He denies any other complaints. No other trauma. There was no episode of heavy lifting that then resulted in immediate pain. Related Data Home Medications Medication Instructions Recorded Confirmed cyclobenzaprine 10 mg tablet 10 mg PO TID #14 tabs 07/26/23 lidocaine 5 % topical patch 1 patch topical Q24H #15 ea 07/26/23 (Lidoderm) prednisone 50 mg tablet 50 mg PO DAILY #5 tabs 07/26/23 Previous Rx's Medication Instructions Recorded cyclobenzaprine 10 mg tablet 10 mg PO TID #14 tabs 07/26/23 lidocaine 5 % topical patch 1 patch topical Q24H #15 ea 07/26/23 (Lidoderm) prednisone 50 mg tablet 50 mg PO DAILY #5 tabs 07/26/23 Allergies Allergy/AdvReac Type Severity Reaction Status Date / Time amoxicillin AdvReac Mild Skin Rash Unverified 07/26/23 08:39 General Stated Complaint: Nk/Back Pain RITO: 4 Review of Systems All systems reviewed & are unremarkable except as noted in HPI and below Exam Narrative Exam Narrative: 1.Const: Well-nourished, Well-developed, appearing stated age 2.Eyes: PERRL, no conjunctival injection, and symmetrical lids. 3.ENT: Atraumatic external nose and ears. Moist MM. Neck: Symmetric, trachea midline, No thyromegaly. 4.CVS: +S1/S2, No murmurs or gallops. Peripheral pulses 2+ and equal in all extremities. Brisk capillary refill in all extremities. 5.RESP: Unlabored respiratory effort. Clear to auscultation bilaterally. No wheezes rales or rhonchi 6.GI: Soft, Nontender/Nondistended, No hepatosplenomegaly. No guarding or rebound. 7.MSK: Normocephalic/Atraumatic, Extremities w/o deformity or ttp No cyanosis or clubbing, Normal movement of all extremities No midline tenderness to palpation over the CTLS spine. Mild left-sided paraspinal tenderness over the lumbar vertebra around L3 and L4. Notable left-sided paraspinal muscle spasm palpable. Normal ROM in flexion, extension, side bend, and rotation. Patient has +5 out of 5 strength in the lower extremities in dorsiflexion and plantarflexion, knee flexion and extension, hip flexion and extension. Normal strength for dorsiflexion and plantar flexion of the great toe bilaterally. There is +2 over 2 dorsalis pedis pulses bilaterally. There is normal sensation to the skin with light touch at the foot, knee, and hip. Normal saddle sensation. Good sensation over the deep sural nerve area bilaterally. Rectal exam demonstrates good rectal tone with excellent jose-rectal sensation. Reflexes are +2 over 4 in the patellar reflex bilaterally. +5 out of 5 strength in the medial, ulnar, radial nerve distribution bilaterally in the hands as well as intact light touch sensation to these dermatomes on the hands 8.Skin: Warm, Dry. No rashes or lesions. 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 Sensation grossly intact, no focal neurologic deficits. 10.Psych: (AAO) x3. Appropriate mood and affect Course Vital Signs Vital signs: Vital Signs Temperature 36.6 C 07/26/23 08:35 Pulse 83 07/26/23 08:35 Respiratory Rate 16 07/26/23 08:35 Blood Pressure 119/84 07/26/23 08:35 Pulse Oximetry 100 07/26/23 08:35 Temperature 36.6 C 07/26/23 08:35 Temperature Source Temporal Artery Scan 07/26/23 08:35 Pulse 83 07/26/23 08:35 Respiratory Rate 16 07/26/23 08:35 Respiratory Effort Normal, Non-Labored 07/26/23 08:39 Blood Pressure 119/84 07/26/23 08:35 Blood Pressure Position Sitting 07/26/23 08:35 Pulse Oximetry 100 07/26/23 08:35 Oxygen Delivery Method Room Air 07/26/23 08:35 Oxygen Flow Rate 0 07/26/23 08:35 Medical Decision Making 33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 Previous imaging including CT imaging of the spine which was negative. Patient states that 2 days ago he noticed some achiness in his left lower back, this is continued. It has felt like his previous strains. Patient denies any saddle anesthesia, numbness or tingling in the groin, change in sensation when wiping. Patient denies any change in sensation during sexual intercourse, difficulty achieving or maintaining an erection or ejaculation, bowel or bladder incontinence, leakage, or retention. Patient denies any weakness in the lower extremities, atypical falls or imbalance. Pain is made worse with lifting and bending. Made worse by lying flat, improved when standing. He denies any other complaints. No other trauma. There was no episode of heavy lifting that then resulted in immediate pain. Exam demonstrates notable left paraspinal spasm around L3-L4. No significant midline bony tenderness. No step-off sign. No evidence of cauda equina syndrome. No signs of concerning neurovascular compromise. No other significant abnormality. Previous imaging was reviewed and showed no signs of emergent bony pathology and the most recent CT imaging was within the past month. Patient otherwise looks well. Symptoms consistent with mild back strain. No evidence of other concerning life-threatening etiology. Symptoms do not appear consistent with paraspinal abscess at this time based on current clinical assessment. No fever or chills to suggest infection. No weight loss. He denies any IV drug use although he does admit to snorting and smoking cocaine in the past. Patient will be given Lidoderm patch, cyclobenzaprine, recommend NSAIDs and heating pad, will give steroids. Discussed red flags for which to return. Will hold off on imaging at this time as there is no current evidence of emergent etiology necessitating emergent imaging. I have extensively reviewed the treatment plan and discharge instructions with the patient. I have addressed all patient concerns at this time. The patient was made aware of what symptoms to monitor for that would warrant a return to the emergency department. Discussed the plan with the patient, they demonstrate verbal understanding and agreement with our assessment and plan at this time. The documentation in this chart was dictated using [employer] dictation software. Please excuse any dictation errors. Quality:SDOH Health Related Social Needs: No Data to Display PFSH All Active Problems Low back sprain (Acute) Cellulitis of right hand (Acute) Substance abuse (Chronic) Depression (Chronic) Suicidal ideation (Acute) Social History Smoking/Tobacco Use Status: Current every day Tobacco Type: cigarettes Tobacco: How many years used: 16 Smoking risk assessment performed?: Yes Alcohol Intake: never Drug use: Daily Substance use type: marijuana and crack/cocaine Housing: other Do you feel safe at home: Yes Do you feel safe in your relationship?: Yes Discharge Plan Disposition Patient Disposition: Home Condition: Good Discharge Details Clinical Impression: Low back sprain Primary Care Provider: Lizzy Lucas ED Provider: Froy Baez Home Meds and New Rx's Prescriptions: New cyclobenzaprine 10 mg tablet 10 mg PO TID Qty: 14 0RF prednisone 50 mg tablet 50 mg PO DAILY Qty: 5 0RF lidocaine [Lidoderm] 5 % adhesive patch,medicated 1 patch Topical Q24H Qty: 15 0RF Discharge Instructions Instructions: Back Pain (ED) Additional Instructions: At this time your signs and symptoms are clinically consistent with a back sprain. This can cause significant pain and take a fair bit of time to heal. I expect 1 to 2 months for potential resolution. In the meantime do not lift anything greater than 5 pounds for the next 2 weeks. Avoid any significant vigorous physical activity. Perform easy gentle regular activities at home without any significant bending or lifting. Please take the steroids as directed. You have been given a prescription for Lidoderm patch. If your insurance does not cover this you can get [id number] Lidoderm patches at 4% which are almost just as effective. Please take the Flexeril as directed but do not take it when driving or operating any vehicles or heavy machinery, swimming, taking long baths, or operating firearms. Please use a heating pad as often as possible on your back. Perform daily gentle stretches on your back. Please continue to take the Tylenol and Motrin. You can take 1000 mg of Tylenol every 6 hours and 600 mg of ibuprofen every 6 hours. If you notice any worsening of your symptoms, or any new symptoms such as vomiting, diarrhea, fever, chills, shortness of breath, chest pain, numbness or tingling in your groin or legs, weakness in your legs, loss of control for your bowels or bladder, or fainting , please return immediately to the emergency department for reevaluation. Please follow up with your primary care provider as soon as possible for reassessment and reevaluation. As always, it was a pleasure participating in your medical care today. Stand Alone Forms: Work Release
[2023-07-26] MEDS: predniSONE 20 MG TAB 60 MG PO (08:47)
[2023-07-26] MEDS: Cyclobenzaprine 10 MG TAB PO (08:47)
[2023-07-26] MEDS: Lidocaine 5% Patch 1 PATCH TP (08:47)
== END 2023-07-26 08:55 | disposition home or self-care (01) ==
PROVIDERS: Emergency Provider Student in an Organized Health Care Education/Training Program; PCP Family Medicine
DX: S33.5XXA Sprain of ligaments of lumbar spine, initial encounter (principal); F17.210 Nicotine dependence, cigarettes, uncomplicated; X50.1XXA Overexertion from prolonged static or awkward postures, initial encounter; Y93.89 Activity, other specified; Y92.69 Other specified industrial and construction area as the place of occurrence of the external cause
CPT/HCPCS: 99283; J7512

== ENCOUNTER 2023-08-09 20:43 | Emergency (ER) | payer MEDICAID, SELFPAY ==
--- NOTE | 2023-08-09 20:45 | DI.RAD_ITS ---
Exam(s) XR CHEST 2V PA LATERAL EXAM: XR CHEST 2V PA LATERAL CLINICAL HISTORY: cough TECHNIQUE: 2D digital imaging was performed. COMPARISON: No exams were available for comparison FINDINGS: HEART: Normal size. Aorta: Not dilated. PULMONARY VASCULATURE: Normal. LUNGS: Clear. PLEURAL SPACE: No pleural effusion or pneumothorax. BONE:Unremarkable for age. Soft tissues: Unremarkable. IMPRESSION: No acute abnormality. DATA REPOSITORY: RADIATION DOSE DELIVERED:
[2023-08-09 20:51] VITALS: BP 110/76; PULSE 100; RESP 16; TEMP 38; O2SAT 96
--- NOTE | 2023-08-09 20:59 | ED.GENADUL_ITS ---
HPI General Date/Time Provider Initiated Documentation: 08/09/23 20:54 . HPI Narrative: 33 year-old male presents to ED today by POV/ambulating with his partner with a chief complaint of feels awful, hot & cold chills, fatigue, body aches, cough with onset noted the past few days. Quality described as generalized cough and cold symptoms, no radiation to severe shortness of breath, inability to tolerate PO intake, severe abdominal pain, nausea/vomiting. Severity is described as moderate to severe. Palliating factors include OTC cold medicines with some relief. Provoking factors include nothing specific. Patient not anticoagulated. Related Data Allergies Allergy/AdvReac Type Severity Reaction Status Date / Time amoxicillin AdvReac Mild Skin Rash Unverified 08/09/23 20:53 General Stated Complaint: Fever RITO: 4 Review of Systems All systems reviewed & are unremarkable except as noted in HPI and below Exam Narrative Exam Narrative: GENERAL APPEARANCE: Well-nourished, non-toxic, awake and alert, atraumatic, no acute distress. SKIN: Warm, pink, dry, intact, without rashes/lesions/ulcerations. HEAD: Normocephalic, atraumatic, normal hair distribution for gender/age. EYES: Pupils PERRLA, EOMs intact without nystagmus, normal conjunctiva, no exudates on lids/lashes. ENT: Nares patent, no circumoral cyanosis, no facial swelling NECK: Supple, trachea midline, painless cervical ROM. LUNGS/CHEST: Lungs CTA bilaterally- no rhonchi/rales/wheezes diffusely, non- labored respirations, normal A/P diameter, symmetrical expansion, no chest wall deformity HEART (CV/PV): Regular rate and rhythm without murmur, no peripheral edema, no JVD. ABDOMEN: Soft, non-distended, no guarding, no tenderness. MSK: Normal ROM, no swelling/deformity to bilateral UEs or LEs, moving all extremities without weakness, no cyanosis, spine midline without tenderness, normal curvature. NEURO: Mental Status AAOx4 - alert to person, place, time, events No facial droop, no forehead involvement. Motor: No focal weakness - strength 5/5 in bilateral UEs and LEs, proximal and distal, symmetric. Sensory: sensation intact to light touch globally. Gait normal: patient ambulated without ataxia into ED room. PSYCH: euthymic, cooperative, pleasant, appropriate speech Course Vital Signs Vital signs: Vital Signs Temperature 38.0 C H 08/09/23 20:51 Pulse 100 H 08/09/23 20:51 Respiratory Rate 16 08/09/23 20:51 Blood Pressure 110/76 08/09/23 20:51 Pulse Oximetry 96 08/09/23 20:51 Temperature 38.0 C H 08/09/23 20:51 Temperature Source Temporal Artery Scan 08/09/23 20:51 Pulse 100 H 08/09/23 20:51 Respiratory Rate 16 08/09/23 20:51 Blood Pressure 110/76 08/09/23 20:51 Blood Pressure Position Sitting 08/09/23 20:51 Pulse Oximetry 96 08/09/23 20:51 Pain Level 6 08/09/23 20:51 Medical Decision Making This dictation utilizes [id number] dictation software and may contain unedited grammatical errors. 33 y/o F presents to ED today with a chief complaint of generalized cough & cold symptoms, hot & cold chills, fatigue. Patient wants to know if he has flu or Covid or similar. Patients' medical history: negative, otherwise healthy. Family and social history: noncontributory. Pertinent exam findings / vital signs include lungs CTA, benign abdomen, nontoxic vitals, mild fever. Differential / pathologies of concern include Viral Syndrome, Not respiratory distress. Diagnostic studies of: -Covid/Flu/RSV PCR, CXR. -XR shows no aute PNA -RSV + Interventions of: -none. ED Course/Assessment/Plan: Counseled the patient on his RSV illness and encouraged vizg-tcl-znayway cold medicines at therapeutic dosing intervals. Counseled on staying well-hydrated and keeping well-nourished but that without any respiratory distress he likely needed no other interventions at this time. Findings not consistent with hypoxic respiratory failure, inability to tolerate PO intake. Disposition of RSV Infection. Patient verbalized understanding of the plan and return to ED criteria and engaged in shared decision making. Medical Records Medical records reviewed: Yes I reviewed the patient's medical records. Imaging Data Radiologic Study: Attestation: I personally reviewed and interpreted this imaging study as follows: Imaging: X-Ray Radiologist's impression: Exam: XR Chest Exam date and time: 08/09/2023 9:21 PM Age: 33 years old Clinical indication: Cough TECHNIQUE: Imaging protocol: Radiologic exam of the chest. Views: 2 views. COMPARISON: CT [facility] CTA 05/28/2023 8:51 PM FINDINGS: Lungs: No pulmonary consolidation is seen. Pleural spaces: No pleural effusion or pneumothorax is demonstrated. Heart/Mediastinum: The heart appears normal in size. Bones/joints: The visualized bony structures appear grossly intact IMPRESSION: No active disease is seen in the chest. Dictated and Authenticated by: Duy Delgado MD. Ordering:SHANNAN Mcduffie MD Lab Data Lab results reviewed: Yes I reviewed the patient's lab results. Labs: Laboratory Tests Range/Units 08/09/23 20:58 COVID-19 Source NASOPHARYNX SARS-CoV-2 (PCR) (Negative) Negative Influenza Type A (PCR) (Negative) Negative Influenza Type B (PCR) (Negative) Negative RSV (PCR) (Negative) Positive A* Quality:SDOH Health Related Social Needs: No Data to Display PFSH All Active Problems (Updated 08/09/23 @ 21:56 by GENEVA Gandara) RSV infection (Acute) Low back sprain (Acute) Cellulitis of right hand (Acute) Substance abuse (Chronic) Depression (Chronic) Suicidal ideation (Acute) Social History Smoking/Tobacco Use Status: Current every day Tobacco Type: cigarettes Tobacco: How many years used: 16 Smoking risk assessment performed?: Yes Alcohol Intake: never Drug use: Daily Substance use type: marijuana and crack/cocaine Housing: other Do you feel safe at home: Yes Do you feel safe in your relationship?: Yes Discharge Plan Disposition Patient Disposition: Home Condition: Stable Discharge Details Chief Complaint: Fever Clinical Impression: RSV infection Primary Care Provider: Lizzy Lucas ED Provider: Froy Gar Discharge Instructions Instructions: Respiratory Syncytial Virus (ED), Viral Syndrome (ED) Additional Instructions: You were seen in the emergency department for your generalized upper respiratory infection, you tested positive for RSV, this is generally only serious in the very young as in infants and elderly population. Please take regular dosings of umvd-awt-[id number] cold medicines, please use therapeutic dosing of Tylenol (acetamenophen) & Advil (ibuprofen) in an alternating fashion as follows: Take 1000mg of Tylenol every 6 hours without missing doses- that is 4 times per day. [place] in between the Tylenol dosings, take 400-600mg of Advil also on a 6 hour schedule, that is also 4 times per day. The daily maximum dosing of Tylenol is 4000mg, and the daily maximum dosing of Advil is 2400mg. This is safe to do for weeks. Please note that some common cold medications & prescription pain medications may contain acetamenophen and you need to read OTC drug labels and factor that in to maximum daily dosings. Please return to the ED for any respiratory distress but you should improve significantly over the next 5 to 7 days. Stand Alone Forms: Work Release Referrals: Lizzy Lucas [Primary Care Provider] -
[2023-08-09 21:41] LABS: COVID-19 PCR Negative (Negative); Influenza A PCR Negative (Negative); Influenza B PCR Negative (Negative)
[2023-08-09 21:48] LABS: RSV PCR Positive (Negative); Source NASOPHARYNX
--- NOTE | 2023-08-09 21:49 | DI.VRAD_ITS ---
PROCEDURE INFORMATION: Exam: XR Chest Exam date and time: 08/09/2023 9:21 PM Age: 33 years old Clinical indication: Cough TECHNIQUE: Imaging protocol: Radiologic exam of the chest. Views: 2 views. COMPARISON: CT [facility] CTA 05/28/2023 8:51 PM FINDINGS: Lungs: No pulmonary consolidation is seen. Pleural spaces: No pleural effusion or pneumothorax is demonstrated. Heart/Mediastinum: The heart appears normal in size. Bones/joints: The visualized bony structures appear grossly intact IMPRESSION: No active disease is seen in the chest. Dictated and Authenticated by: Duy Delgado MD. Ordering:SHANNAN Mcduffie MD
[2023-08-09] MEDS: Acetaminophen 500 MG TAB 1000 MG PO (22:04)
== END 2023-08-09 22:04 | disposition home or self-care (01) ==
PROVIDERS: Emergency Provider Physician Assistant; PCP Family Medicine
DX: J06.9 Acute upper respiratory infection, unspecified (principal); B97.4 Respiratory syncytial virus as the cause of diseases classified elsewhere; F17.210 Nicotine dependence, cigarettes, uncomplicated; Z11.52 Encounter for screening for COVID-19
CPT/HCPCS: 87637; 99283; 71046

== ENCOUNTER 2024-08-01 08:43 | Emergency (ER) | payer SELFPAY ==
[2024-08-01 08:50] VITALS: BP 118/76; PULSE 77; TEMP 36.7; O2SAT 98
--- NOTE | 2024-08-01 09:00 | DI.RAD_ITS ---
Exam(s) XR CHEST 2V PA LATERAL EXAM: XR CHEST 2V PA LATERAL CLINICAL HISTORY: cough TECHNIQUE: 2D digital imaging was performed. Two views. COMPARISON: CR,XR XR CHEST 2V PA LATERAL from 08/09/2023 FINDINGS: HEART: Normal size. Aorta: Not dilated. PULMONARY VASCULATURE: Normal. MEDIASTINUM: Unremarkable. LUNGS: Clear. PLEURAL SPACE: No pleural effusion or pneumothorax. BONE:Unremarkable for age. SOFT TISSUES: Unremarkable. IMPRESSION: No acute abnormality. DATA REPOSITORY: RADIATION DOSE DELIVERED:
--- NOTE | 2024-08-01 09:03 | W.ED.GENAD ---
Discharge Plan Disposition Patient Disposition: Home Condition: Stable Discharge Details Clinical Impression: URI (upper respiratory infection) Primary Care Provider: Lizzy Lucas ED Provider: Asad Guadarrama Home Meds and New Rx's Prescriptions: New prednisone 20 mg tablet 60 mg PO DAILY 4 Days Qty: 12 0RF Discharge Instructions Additional Instructions: Your x-ray and viral swab were negative. I suspect you are suffering from a respiratory infection from a virus that the swab did not picking supervisor on. If you are not improving in a few days follow-up with your PCP or express care. You can use the inhaler 2 puffs every 4 hours as needed. If you feel more ill, have severe worsening shortness of breath or new symptoms such as persistent vomiting return to the emergency department for reevaluation. Stand Alone Forms: Work Release HPI General Mode of arrival: ambulatory. Date/Time Provider Initiated Documentation: 08/01/24 08:43. Limitations to Documentation: no limitations. Information obtained by: patient. History of Present Illness 34 year old M presents to the emergency department with the chief complaint of cough, described as moderate, Patient started experiencing this day(s) (3) and it has been intermittent. No relieving factors improve symptom(s), No exacerbating factors reported . Patient notes fever/chills. Patient did receive the following treatments prior to arrival, none Related Data Home Medications ?Medication ?Instructions ?Recorded ?Confirmed prednisone 20 mg tablet 60 mg (3 x 20 mg) PO DAILY 4 days 08/01/24 #12 tabs Previous Rx's ?Medication ?Instructions ?Recorded prednisone 20 mg tablet 60 mg (3 x 20 mg) PO DAILY 4 days 08/01/24 #12 tabs Allergies Allergy/AdvReac Type Severity Reaction Status Date / Time amoxicillin AdvReac Mild Skin Rash Verified 08/01/24 08:52 General Stated Complaint: RespSymp RITO: 4 Review of Systems All systems reviewed & are unremarkable except as noted in HPI and below Constitutional Constitutional: Reports chills, Reports fever(s) and Denies weakness Cardiovascular Cardiovascular: Denies chest pain and Reports dyspnea Respiratory Respiratory: Reports cough and Reports dyspnea Gastrointestinal Gastrointestinal: Denies abdominal pain, Denies nausea and Denies vomiting Neurologic Neurologic: Denies weakness Psychiatric Psychiatric: Denies depression Exam Const General: no acute distress Orientation: alert HENMT Head: normal to inspection Ears: external ears normal General nose exam: external nose normal Mouth: moist mucous membranes Eyes General: appearance normal, both eyes and all related structures Neck Neck: normal visual inspection Resp Effort & Inspection: normal respiratory effort and able to speak in complete sentences Auscultation: rhonchi and wheezes Cardio Jugular venous pressure: no JVD Rate: regular rate Heart Sounds: no murmurs Skin General skin exam: no rashes or lesions noted Neuro General: patient alert and patient oriented x3 Extrem General: normal to inspection Psych Mental Status: mental status grossly normal Course Vital Signs Vital signs: Vital Signs Temperature 36.7 C 08/01/24 08:50 Pulse 77 08/01/24 08:50 Blood Pressure 118/76 08/01/24 08:50 Pulse Oximetry 98 08/01/24 08:50 Temperature 36.7 C 08/01/24 08:50 Pulse 77 08/01/24 08:50 Respiratory Effort Short of Breath 08/01/24 08:55 Respiratory Depth Normal 08/01/24 08:55 Blood Pressure 118/76 08/01/24 08:50 Pulse Oximetry 98 08/01/24 08:50 Pain Level 0 08/01/24 08:50 Medical Decision Making 34-year-old male who denies any chronic medical problems but is a smoker comes in with several days of subjective fevers and chills, cough and bodyaches. He denies any recent travel, denies any drug use. He is speaking full sentences in no distress with an intermittent cough during exam. He has rhonchi at the bases bilaterally and apical wheezing. No JVD. I suspect a respiratory infection, will check a Fluvid, chest x-ray and treat his symptoms with DuoNeb and prednisone and reassess. Patient's x-ray negative, Fluvid negative, patient is feeling better after DuoNeb. Lung sounds of now improved and has no rhonchi. He has mild apical wheezing. He is stable, I will prescribe an albuterol inhaler and prednisone. Suspect he has a viral URI he will follow-up with his PCP or express care if not improving and return precautions given Differential Diagnosis Differential Diagnosis: URI, COVID, flu, pneumonia Quality:SDOH Health Related Social Needs: No Data to Display PFSH All Active Problems (Updated 08/01/24 @ 09:59 by Asad Guadarrama MD) URI (upper respiratory infection) (Acute) Substance abuse (Chronic) Depression (Chronic) Suicidal ideation (Acute) Social History Smoking/Tobacco Use Status: Current every day Tobacco Type: cigarettes Tobacco: How many years used: 16 Smoking risk assessment performed?: Yes Alcohol Intake: never Drug use: Daily Substance use type: marijuana Housing: other Do you feel safe at home: Yes Do you feel safe in your relationship?: Yes
[2024-08-01] MEDS: Albuterol/Ipratropium 3 ML UPD VIAL UPD (09:22)
[2024-08-01] MEDS: predniSONE 20 MG TAB 60 MG PO (09:22)
[2024-08-01 09:36] LABS: COVID-19 PCR Negative (Negative); Influenza A PCR Negative (Negative); Influenza B PCR Negative (Negative); RSV PCR Negative (Negative)
[2024-08-01 09:43] LABS: Source Nasopharynx
[2024-08-01] MEDS: Albuterol HFA 8 GM 60 PUFF INH IH (10:22)
[2024-08-01] MEDS: Inhaler, Assist Device 1 EACH MC (10:22)
[2024-08-01 10:25] VITALS: BP 120/65; PULSE 72; TEMP 36.7; O2SAT 98
== END 2024-08-01 10:24 | disposition home or self-care (01) ==
LOC: ER 10:15
PROVIDERS: Emergency Provider Emergency Medicine; PCP Family Medicine
DX: J06.9 Acute upper respiratory infection, unspecified (principal); F17.210 Nicotine dependence, cigarettes, uncomplicated
CPT/HCPCS: 87637; 94640; 99284; 71046; J7512; J7620

== ENCOUNTER 2024-08-13 09:29 | Emergency (ER) | payer SELFPAY ==
[2024-08-13] VITALS (23 sets, daily range): BP systolic 103–126; BP diastolic 71–91; PULSE 77–100; RESP 15–22; TEMP 37–38.3; O2SAT 92–99
[2024-08-13] MEDS: Ondansetron 4 MG/2 ML VIAL IVP (10:11)
[2024-08-13] MEDS: Normal Saline 1,000 ML 1000 ML IV ×2 (10:11→11:19)
--- NOTE | 2024-08-13 10:12 | W.ED.GENAD ---
Discharge Plan Disposition Patient Disposition: Home Condition: Stable Discharge Details Clinical Impression: Nausea, vomiting and diarrhea Primary Care Provider: Lizzy Lucas ED Provider: Daly Segovia Home Meds and New Rx's Prescriptions: New ondansetron 4 mg tablet,disintegrating 4 mg PO Q6H PRN (Reason: nausea and vomiting) Qty: 30 0RF Discharge Instructions Instructions: Nausea and Vomiting, Adult ED Additional Instructions: symptoms likely due to a viral GI illness, you did show signs of dehydration and were given 2 L of IV fluids in the emergency department. You will be discharged with a prescription for Zofran which will help with your nausea. Please continue this medication as needed. Continue clear fluids and increase your intake and diet as tolerated Discharge Data Discharge Date/Time-TO BE ENTERED AT DEPARTURE: 08/13/24 12:23 HPI General Date/Time Provider Initiated Documentation: 08/13/24 10:05. Limitations to Documentation: no limitations. Information obtained by: patient. HPI Narrative: 34-year-old gentleman without known past medical history presents for evaluation of vomiting and diarrhea. Onset of symptoms last night. He reports multiple episodes of vomiting and diarrhea.. He states that he feels very thirsty. He reports some generalized abdominal cramping. No blood in his diarrhea. Unknown fever. Fianc? reports that she had similar symptoms last week. Related Data Home Medications ?Medication ?Instructions ?Recorded ?Confirmed ondansetron 4 mg disintegrating 4 mg PO Q6H PRN nausea and 08/13/24 tablet vomiting #30 tabs Previous Rx's ?Medication ?Instructions ?Recorded ondansetron 4 mg disintegrating 4 mg PO Q6H PRN nausea and 08/13/24 tablet vomiting #30 tabs Allergies Allergy/AdvReac Type Severity Reaction Status Date / Time amoxicillin AdvReac Mild Skin Rash Verified 08/13/24 09:41 General Stated Complaint: Nausea/Vomit/Diar RITO: 3 Exam Narrative Exam Narrative: Review of Systems: All systems reviewed & are unremarkable except as noted in HPI and below Dry heaving NCAT Dry mucous membranes Slight tachycardia no murmur Unlabored respiratory effort, clear bilaterally Nondistended abdomen , soft nontender Course Vital Signs Vital signs: Vital Signs Temperature 37.6 C H 08/13/24 09:36 Pulse 100 H 08/13/24 09:36 Respiratory Rate 15 08/13/24 09:36 Blood Pressure 126/80 08/13/24 09:36 Pulse Oximetry 99 08/13/24 09:36 Temperature 37.6 C H 08/13/24 09:36 Temperature Source Temporal Artery Scan 08/13/24 09:36 Pulse 100 H 08/13/24 09:36 Respiratory Rate 15 08/13/24 09:36 Blood Pressure 126/80 08/13/24 09:36 Blood Pressure Position Sitting 08/13/24 09:36 Pulse Oximetry 99 08/13/24 09:36 Oxygen Delivery Method Room Air 08/13/24 09:36 Oxygen Flow Rate 0 08/13/24 09:36 Pain Level 6 08/13/24 09:36 Medical Decision Making Emergent evaluation of vomiting and diarrhea. Initial differential includes viral illness, dehydration, electrolyte derangement. Patient has no history of diabetes to consider DKA, will give antiemetic. Temperature is noted to be slightly elevated, will treat with Tylenol. Give fluid resuscitation check labs and monitor for tolerance of p.o. challenge. Lab work reviewed. There is significant leukocytosis and hemoconcentration of the hemoglobin and hematocrit. I suspect that this is due to dehydration and not leukocytosis for an infectious etiology. Creatinine 1.4 which does appear worse than baseline in addition to an elevated BUN and anion gap. No significant hyperglycemia. The patient received 2 L of IV fluids in addition to antiemetics. The patient had a significant improvement in his response. And he felt much better. After the antiemetic he was tolerating liquids by mouth. After fluid resuscitation, the patient was stable for discharge home. He was sent with a prescription for an antiemetic. Return precautions advised. Quality:SDWA Health Related Social Needs: No Data to Display [facility] All Active Problems (Updated 08/13/24 @ 11:37 by Daly Segovia MD) Nausea, vomiting and diarrhea (Acute) URI (upper respiratory infection) (Acute) Substance abuse (Chronic) Depression (Chronic) Suicidal ideation (Acute) Social History Smoking/Tobacco Use Status: Current every day Tobacco Type: cigarettes Tobacco: How many years used: 16 Smoking risk assessment performed?: Yes Alcohol Intake: never Drug use: Daily Substance use type: marijuana Housing: other Do you feel safe at home: Yes Do you feel safe in your relationship?: Yes
[2024-08-13 10:13] LABS: Abs Immature Grans 0.26 10^3/uL (0.0-0.06); Absolute Basophil Count 0.12 10^3/uL (0.0-0.2); Absolute Lymphocyte Count 1.02 10^3/uL (1.2-3.4); Basophils % 0.5 %; Eosinophils % 0.3 %; HCT 51.9 % (40.0-50.0); HGB 17.8 g/dL (13.5-17.5); Immature Grans % 1.1 %; Lymphocytes % 4.2 %; MCH 30.8 pg (27.0-33.0); MCHC 34.3 % (32.0-36.0); MCV 90 fL (80-95); MPV 9.6 fL (8.0-11.0); Monocytes % 5.1 %; Neutrophils % 88.8 %; Platelet Count 369 10^3/uL (130-400); RBC 5.77 10^6/uL (4.36-5.78); RDW 12.6 % (11.8-14.1); RDW-SD 41.4 fL; WBC 24.35 10^3/uL (4.4-10.8)
[2024-08-13] MEDS: ACETAMINOPHEN 1,000 MG/100 ML BAG 400 MG IVPB (10:23)
[2024-08-13 10:29] LABS: ALT 24 U/L (16-63); AST 13 U/L (15-37); Albumin 5.3 g/dL (3.4-5.0); Alkaline Phosphatase 76 U/L (46-116); Anion Gap 18.6 mmol/L (3-11); BUN 29 mg/dL (7-18); Bilirubin, Total 0.68 mg/dL (0.2-1.0); CO2 19.4 mmol/L (21.0-32.0); CREATININE 1.4 mg/dL (0.70-1.30); Calcium 10.6 mg/dL (8.5-10.1); Chloride 103 mmol/L (98-107); Glucose 138 mg/dL (74-106); Potassium 3.8 mmol/L (3.5-5.1); Sodium 141 mmol/L (136-145); Total Protein 9.4 g/dL (6.4-8.2)
[2024-08-13 10:56] LABS: Absolute Eosinophil Count 0.07 10^3/uL (0.0-0.7); Absolute Monocyte Count 1.24 10^3/uL (0.1-0.8); Absolute Neutrophil Count 21.62 10^3/uL (1.2-6.7)
[2024-08-13 10:57] LABS: Diff Comment Diff Reviewed; RBC Morphology Normal
== END 2024-08-13 12:23 | disposition home or self-care (01) ==
PROVIDERS: Emergency Provider Emergency Medicine; PCP Family Medicine
DX: R11.2 Nausea with vomiting, unspecified (principal); R19.7 Diarrhea, unspecified; R50.9 Fever, unspecified; F17.210 Nicotine dependence, cigarettes, uncomplicated
CPT/HCPCS: 80053; 96361; 96365; 96375; 99284; 85025; 99283; J0131; J2405

== ENCOUNTER 2025-05-15 17:29 | Emergency (ER) | payer SELFPAY ==
[2025-05-15 17:32] VITALS: BP 121/75; PULSE 67; RESP 16; TEMP 36.7; O2SAT 95
--- NOTE | 2025-05-15 17:53 | DI.RAD_ITS ---
Exam(s) XR CERVICAL SPINE COMP 4-5V EXAM: XR CERVICAL SPINE COMP 4-5V CLINICAL HISTORY: Arm pain. TECHNIQUE: 2D digital imaging was performed. Five views were performed. COMPARISON: No exams were available for comparison FINDINGS: BONES: No fracture or destructive lesion. Vertebral bodies are unremarkable. DISKS: Intervertebral disc spaces are maintained. ALIGNMENT: Cervical spinal alignment is within normal limits. The odontoid and atlantoaxial articulations are normal. SOFT TISSUE: Normal. The lung apices are clear. IMPRESSION: Unremarkable radiographs of the cervical spine. DATA REPOSITORY: RADIATION DOSE DELIVERED:
--- NOTE | 2025-05-15 17:54 | ED.GENADUL_ITS ---
Discharge Plan Disposition Patient Disposition: Home Condition: Stable Discharge Details Clinical Impression: Muscle spasm of back, Musculoskeletal strain Primary Care Provider: None,None ED Provider: Marisela Trotter Home Meds and New Rx's Prescriptions: New cyclobenzaprine 10 mg tablet 10 mg PO TID PRN (Reason: muscle spasm) Qty: 10 0RF Rx Instructions: Take 1 tablet orally up to 3 times daily as needed for muscle spasm. No Action ondansetron 4 mg tablet,disintegrating 4 mg PO Q6H PRN (Reason: nausea and vomiting) Qty: 30 0RF Discharge Instructions Instructions: Muscle Spasm ED Additional Instructions: X-rays are within normal limits. I do suspect that this is a muscle spasm. Pl ease take the muscle relaxers as prescribed you are given the first dose here. Please take Tylenol or Ibuprofen with food every 4-6 hours as needed for pain and swelling. Follow up with primary care provider in 3-5 days. Return to ED sooner if any worsening or concerns. Stand Alone Forms: Portal Information Referrals: Lizzy Lucas [ [facility] STAFF PHYSICIAN, Medicine] - 5 days Referral Note: ER follow-up, call for an appointment to see Clinical Impression: Muscle spasm of back Discharge Data Discharge Date/Time-TO BE ENTERED AT DEPARTURE: 05/15/25 19:18 HPI General Mode of arrival: ambulatory . Date/Time Provider Initiated Documentation: 05/15/25 17:39 . Limitations to Documentation: no limitations . Information obtained by: patient, RN notes reviewed and old records reviewed . HPI Narrative: 35-year-old male presents to the ER chief complaint of bilateral shoulder pain with radiation down his right arm over the last few weeks. Also reports lumbar back pain. Denies any recent injuries, problems urinating nausea vomiting diarrhea or any other associated symptoms. 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 Has been taking Tylenol with little to no relief. Denies any radiation into his limbs, denies any loss of bowel or bladder control no leg pain numbness tingling or weakness. Related Data Home Medications Medication Instructions Recorded Confirmed ondansetron 4 mg disintegrating 4 mg PO Q6H PRN nausea and 08/13/24 tablet vomiting #30 tabs cyclobenzaprine 10 mg tablet 10 mg PO TID PRN muscle s pasm #10 05/15/25 tabs Previous Rx's Medication Instructions Recorded ondansetron 4 mg disintegrating 4 mg PO Q6H PRN nausea and 08/13/24 tablet vomiting #30 tabs cyclobenzaprine 10 mg tablet 10 mg PO TID PRN muscle s pasm #10 05/15/25 tabs Allergies Allergy/AdvReac Type Severity Reaction Status Date / Time amoxicillin AdvReac Mild Skin Rash Verified 05/15/25 17:36 General Stated Complaint: Orthopedic RITO: 4 Review of Systems All systems reviewed & are unremarkable except as noted in HPI and below Musculoskeletal Musculoskeletal: Reports as per HPI, Reports back pain and Reports stiffness Exam Narrative Exam Narrative: Constitutional: Alert and oriented x3. Appears stated age. Normal body habitus. Head: Normocephalic, no trauma. Eyes: Pupils PERRL, Red reflex noted, EOM's intact. Eyelids symmetrical without lesions, discharge, or swelling. Chest: RRR, Normal S1, S2, distal pulses intact. Resp: Lungs clear to auscultation bilaterally, no wheezes, rales, or rhonchi. Abdomen: Soft, non-distended, Normoactive bowel sounds all 4 quads. Musculoskeletal: Normal gait, Moves all 4 extremities without difficulty. Skin: No suspicious rashes or lesions. Capillary refill less than 2 sec. Neurologic: Cranial nerves II-XII intact. Alert and oriented x 3. Motor: No deficits noted. Sensory: Intact bilaterally all 4 extremities. Hematologic/Lymphatic: No ecchymosis, no lymphadenopathy. Course Vital Signs Vital signs: Vital Signs Temperature 36.7 C 05/15/25 17:32 Pulse 67 05/15/25 17:32 Respiratory Rate 16 05/15/25 17:32 Blood Pressure 121/75 05/15/25 17:32 Pulse Oximetry 95 05/15/25 17:32 Temperature 36.7 C 05/15/25 17:32 Pulse 67 05/15/25 17:32 Respiratory Rate 16 05/15/25 17:32 Blood Pressure 121/75 05/15/25 17:32 Pulse Oximetry 95 05/15/25 17:32 Oxygen Delivery Method Room Air 05/15/25 17:32 Oxygen Flow Rate 0 05/15/25 17:32 Medical Decision Making 35-year-old male presents to the ER chief complaint of bilateral shoulder pain with radiation down his right arm over the last few weeks. Also reports lumbar back pain. Denies any recent injuries, problems urinating nausea vomiting diarrhea or any other associated symptoms. 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 Has been taking Tylenol with little to no relief. Denies any radiation into his limbs, denies any loss of bowel or bladder control no leg pain numbness tingling or weakness. X-ray C-spine ordered, L-spine x-ray ordered Flexeril and ibuprofen and a lidocaine patch. X-rays within the normal limits. There is some level of scoliosis. I do suspect a muscle spasm. Will discharge with Flexeril and lidocaine patches and instructed to take Tylenol and ibuprofen follow-up PCP. This text was generated using [employer] dictation system, please disregard any oddities of phrase or misspellings. PFSH All Active Problems (Updated 05/15/25 @ 19:10 by Marisela Trotter NP) Musculoskeletal strain (Acute) Muscle spasm of back (Acute) Substance abuse (Chronic) Depression (Chronic) Suicidal ideation (Acute) Social History Smoking/Tobacco Use Status: Current every day Tobacco Type: cigarettes Tobacco: How many years used: 16 Smoking risk assessment performed?: Yes Alcohol Intake: never Drug use: Daily Substance use type: marijuana Housing: other Do you feel safe at home: Yes Do you feel safe in your relationship?: Yes
[2025-05-15] MEDS: Lidocaine 5% Patch 1 PATCH TP (18:20)
[2025-05-15] MEDS: Cyclobenzaprine 10 MG TAB PO (18:20)
[2025-05-15] MEDS: Ibuprofen 800 MG TAB PO (18:20)
--- NOTE | 2025-05-15 18:56 | DI.RAD_ITS ---
Exam(s) XR LUMBAR SPINE COMPLETE EXAM: XR LUMBAR SPINE COMPLETE CLINICAL HISTORY: Back pain. TECHNIQUE: 2D digital imaging was performed. Five views. COMPARISON: CT CT THORAX CTA from 05/28/2023 FINDINGS: BONES: No fracture or destructive lesion. Vertebral body heights are maintained. No facet hypertrophy identified . DISKS: Intervertebral disc spaces are maintained. ALIGNMENT: Mild to moderate levoscoliosis SOFT TISSUE: Normal. IMPRESSION: [id number] levoscoliosis. DATA REPOSITORY: RADIATION DOSE DELIVERED:
[2025-05-15] MEDS: Cyclobenzaprine 10 MG TAB, 3 TABS/BTL PO (19:16)
[2025-05-15 19:17] VITALS: BP 125/62; PULSE 64; RESP 18; O2SAT 96
== END 2025-05-15 19:18 | disposition home or self-care (01) ==
PROVIDERS: Emergency Provider Registered Nurse Emergency
DX: M62.830 Muscle spasm of back (principal); S39.012A Strain of muscle, fascia and tendon of lower back, initial encounter; X58.XXXA Exposure to other specified factors, initial encounter
CPT/HCPCS: 99283; 72050; 72110